=== PATIENT | female | born 1945 | race Caucasian/White ===

== ENCOUNTER 2018-05-03 03:52 | Emergency (ER) | payer MEDICARE, OTHER ==
[2018-05-03] MEDS ORDERED: Pepcid 20 MG VIAL IV ONE ×2 (03:57→04:09)
[2018-05-03] MEDS ORDERED: BENADRYL 50 MG/ML ONE (03:57)
[2018-05-03] MEDS ORDERED: solu-MEDROL 125 MG ONE (03:57)
--- NOTE | 2018-05-03 04:02 | ERPHSYRPT ---
- History of Present Illness Time Seen by Provider: 05/03/18 03:57 Source: patient, family Exam Limitations: clinical condition Physician History: 72 y/o white female with h/o copd presents with sudden onset of soa. 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 pt does not use oxygen at home. no cp. pt is allergic to shellfish and pcn but per sig other, no ingestion of these. pt had a similar episode in distant past when she ate food unknowingly contained shellfish. Activities at Onset: none Severity of Dyspnea-Max: moderate Severity of Dyspnea-Current: moderate Possible Cause: unknown cause (one other episode.) Associated Symptoms: anxiety, cough, productive cough International travel in last 2 weeks: No Allergies/Adverse Reactions: codeine [Codeine] Allergy (Severe, Verified 01/17/14 06:49) Fainting Penicillins Allergy (Severe, Verified 01/17/14 06:49) Swelling shellfish derived Allergy (Intermediate, Verified 01/18/14 16:30) Difficulty Breathing Home Medications: Albuterol Sulfate [Proair Hfa] 2 puff IH BID 07/12/12 [History] Citalopram Hydrobromide 20 mg* [ceLEXa 20 MG] 40 mg PO DAILY 07/12/12 [ History] Levothyroxine Sodium 50 Mcg [Synthroid 50 Mcg] 50 mcg PO DAILY 07/12/12 [ History] Potassium Chloride 20 Meq Tab [Potassium Chloride 20 MEQ TABLET] 20 meq PO TID 07/12/12 [History] Albuterol 2.5 mg/3 ml Neb [Proventil 2.5 mg/3 ml Neb] 2.5 mg IH Q4HPRN PRN 06/07/13 [History] Allopurinol 100 mg [Zyloprim 100 mg] 100 mg PO DAILY 06/07/13 [History] Furosemide [Lasix] 40 mg PO DAILY 06/07/13 [History] Hctz/Triamteren 37.5 mg/25 mg* [Maxzide-25MG Tablet] 1 tab PO DAILY 06/07/13 [History] Allopurinol [Zyloprim] 100 mg PO DAILY PRN 01/17/14 [History] Pantoprazole Sodium [Protonix] 40 mg PO DAILY 01/17/14 [History] Ranitidine HCl [Zantac] 150 mg PO BID 01/17/14 [History] Hx Tetanus, Diphtheria Vaccination/Date Given: Yes Hx Influenza Vaccination/Date Given: No (refuses) Hx Pneumococcal Vaccination/Date Given: No - Review of Systems Constitutional: No Symptoms, No Fever Eyes: No Symptoms Ears, Nose, & Throat: No Symptoms Respiratory: Cough, Dyspnea, No Stridor, No Wheezing Cardiac: No Symptoms, No Chest Pain, No Palpitations, No Syncope Abdominal/Gastrointestinal: No Symptoms, No Abdominal Pain, No Nausea, No Vomiting, No Diarrhea Genitourinary Symptoms: No Symptoms, No Dysuria, No Frequency, No Hematuria Musculoskeletal: No Symptoms Skin: No Symptoms Neurological: No Symptoms Psychological: No Symptoms Endocrine: No Symptoms Hematologic/Lymphatic: No Symptoms Immunological/Allergic: No Symptoms All Other Systems: Reviewed and Negative - Past Medical History Pertinent Past Medical History: Yes Neurological History: No Pertinent History ENT History: Cataracts, Other Cardiac History: Hypertension Respiratory History: Bronchitis Endocrine Medical History: Hyperthyroidism Musculoskeletal History: No Pertinent History GI Medical History: Esophageal Disorder History: No Pertinent History Psycho-Social History: Depression Female Reproductive Disorders: Fibroids Other Medical History: skin ca - Past Surgical History Past Surgical History: Yes Neuro Surgical History: No Pertinent History Cardiac: No Pertinent History Respiratory: No Pertinent History Gastrointestinal: Cholecystectomy Genitourinary: No Pertinent History Musculoskeletal: No Pertinent History Female Surgical History: Hysterectomy Other Surgical History: T&A - Social History Smoking Status: Never smoker Exposure to second hand smoke: Yes Drug Use: none Patient Lives Alone: No Significant Family History: no pertinent family hx - Nursing Vital Signs Nursing Vital Signs: Initial Vital Signs Temperature 98 F 05/03/18 04:02 Pulse Rate 92 H 05/03/18 04:02 Respiratory Rate 26 H 05/03/18 04:02 Blood Pressure 106/98 05/03/18 04:02 O2 Sat by Pulse Oximetry 97 05/03/18 04:02 Pain Scale Pain Intensity 2 - Physical Exam General Appearance: moderate distress, alert, anxiety Eye Exam: PERRL/EOMI, eyes nml inspection Ears, Nose, Throat Exam: hearing grossly normal Neck Exam: normal inspection, non-tender, supple Respiratory Exam: respiratory distress, diminished breath sounds, accessory muscle use, rhonchi, No wheezing, No stridor Cardiovascular/Chest Exam: regular rate/rhythm Abdominal/Gastrointestinal Exam: soft, normal bowel sounds, No tenderness, No distention, No mass, No guarding, No rebound Rectal Exam: not done Extremity Exam: non-tender, normal range of motion, normal inspection Neurologic Exam: alert, oriented x 3, cooperative, cast iron dipper II-XII nml as tested Skin Exam: normal color, warm, dry Lymphatic Exam: No adenopathy SpO2 Interpretation: normal, O2 applied Oxygen Delivery: Room Air - Course Nursing assessment & vital signs reviewed: Yes EKG Interpreted by Me: RATE (69), Sinus Rhythm, NORMAL AXIS, NORMAL INTERVALS, Non-specific ST Changes (improved ekg over ekg dated 01/18/14) Ordered Tests: Active Orders 24 hr Category Date Time Status Desk Lieutenant STAT Care 05/03/18 04:10 Active EKG-ER Only STAT Care 05/03/18 04:09 Active IV Insertion STAT Care 05/03/18 04:09 Active Pulse Oximetry (ED) STAT Care 05/03/18 04:09 Active CHEST 1 VIEW (PORTABLE) Stat Exams 05/03/18 04:10 Taken ABG [ARTERIAL BLOOD GASES] Stat Lab 05/03/18 06:48 Completed ARTERIAL BLOOD GASES Stat Lab 05/03/18 04:20 Completed BLOOD CULTURE Stat Lab 05/03/18 04:30 Received CBC W DIFF Stat Lab 05/03/18 04:28 Completed CMP Stat Lab 05/03/18 04:28 Completed CULTURE,SPUTUM Stat Lab 05/03/18 04:28 Received D-DIMER QUANTITATION Stat Lab 05/03/18 04:28 Completed Lactic Acid Stat Lab 05/03/18 04:20 Completed Lactic Acid Stat Lab 05/03/18 06:48 Results NT PRO BNP Stat Lab 05/03/18 04:28 Completed PROTIME WITH INR Stat Lab 05/03/18 04:28 Completed TROPONIN Q3H Lab 05/03/18 04:28 Completed TROPONIN Q3H Lab 05/03/18 07:15 Ordered TROPONIN Q3H Lab 05/03/18 10:15 Ordered TROPONIN Q3H Lab 05/03/18 13:15 Ordered TROPONIN Q3H Lab 05/03/18 16:15 Ordered Medication Summary Generic Name Dose Route Start Last Admin Trade Name Freq PRN Reason Stop Dose Admin Potassium Chloride 20 meq in 100 mls @ 50 mls/hr 05/03/18 05:15 05/03/18 05: 23 Potassium Chloride 20 Meq In Water 100ml IV 05/03/18 07:14 50 mls/hr STAT ONE Administration Discontinued Medications Generic Name Dose Route Start Last Admin Trade Name Mike PRN Reason Stop Dose Admin Diphenhydramine HCl Confirm 05/03/18 03:57 Benadryl 50 Mg/Ml Administered 05/03/18 03:58 Dose 50 mg .ROUTE .STK-MED ONE Diphenhydramine HCl 50 mg 05/03/18 04:12 05/03/18 04:16 Benadryl 50 Mg/Ml IV 05/03/18 04:13 50 mg STAT ONE Administration Famotidine Confirm 05/03/18 03:57 Pepcid 20 Mg Vial Administered 05/03/18 03:58 Dose 40 mg IV .STK-MED ONE Famotidine 40 mg 05/03/18 04:09 05/03/18 04:16 Pepcid 20 Mg Vial IV 05/03/18 04:10 40 mg STAT ONE Administration Potassium Chloride Confirm 05/03/18 05:20 Potassium Chloride 20 Meq In Water 100ml Administered 05/03/18 05:21 Dose 100 mls @ ud IV .STK-MED ONE Sodium Chloride 500 mls @ 500 mls/hr 05/03/18 05:37 05/03/18 05:38 Sodium Chloride 0.9% 500 Ml IV 05/03/18 06:36 500 mls/hr .Q1H ONE Administration Sodium Chloride Confirm 05/03/18 05:37 Sodium Chloride 0.9% 500 Ml Administered 05/03/18 05:38 Dose 500 mls @ ud IV .STK-MED ONE Methylprednisolone Sodium Succinate Confirm 05/03/18 03:57 Solu-Medrol 125 Mg Administered 05/03/18 03:58 Dose 125 mg .ROUTE .STK-MED ONE Methylprednisolone Sodium Succinate 125 mg 05/03/18 04:09 05/03/18 04:16 Solu-Medrol 125 Mg IV 05/03/18 04:10 125 mg STAT ONE Administration Potassium Chloride 20 meq 05/03/18 05:17 05/03/18 05:23 Klor Con 10 Meq PO 05/03/18 05:18 20 meq STAT ONE Administration Potassium Chloride Confirm 05/03/18 05:20 Klor Con 10 Meq Administered 05/03/18 05:21 Dose 20 meq PO .STK-MED ONE Lab/Rad Data: Laboratory Result Diagrams 05/03/18 04:28 05/03/18 04:28 Laboratory Results 05/03/18 05/03/18 05/03/18 Range/Units 06:48 06:48 04:39 WBC (4.0-10.5) K/mm3 RBC (4.1-5.4) M/mm3 Hgb (12.0-16.0) gm/dl Hct (35-47) % MCV (78-100) fl MCH (26-32) pg MCHC (32-36) g/dl RDW (11.5-14.0) % Plt Count (150-450) K/mm3 MPV (6-9.5) fl Gran % (36.0-66.0) % Eos # (Auto) (0-0.5) Absolute Lymphs (auto) (1.0-4.6) Absolute Monos (auto) (0.0-1.3) Lymphocytes % (24.0-44.0) % Monocytes % (0.0-12.0) % Eosinophils % (0.00-5.0) % Basophils % (0.0-0.4) % Absolute Granulocytes (1.4-6.9) Basophils # (0-0.4) PT (9.95-12.35) SECONDS INR (0.8-3.0) D-Dimer (215-500) ng/mL Puncture Site RIGHT RADIAL pCO2 44 (35-45) mmHg pO2 72 L (75-100) mmHg Base Excess 5.9 H (-2.0-2.0) O2 Saturation 93.1 L (94-100) g/dF ABG pH 7.45 (7.35-7.45) ABG HCO3 30.6 H* (22-28) ABG O2 Sat (Measured) 93.9 L (95-100) % Collin Test YES A-a Gradient 23 a/A Ratio 0.76 Hemoglobin 11.5 Carboxyhemoglobin 0.3 (0.0-6.9) % THgb Methemoglobin 0.5 L (1.4-1.5) % Potassium 3.2 L (3.5-5.1) Temperature 37.0 C POC O2 Flow Rate 21 % Sodium (137-145) mmol/L Chloride (98-107) mmol/L Carbon Dioxide (22-30) mmol/L Anion Gap (5-15) MEQ/L BUN (7-17) mg/dL Creatinine (0.52-1.04) mg/dL Estimated GFR ML/MIN Glucose (74-106) mg/dL Lactic Acid 2.3 H (0.4-2.0) Calcium (8.4-10.2) mg/dL Total Bilirubin (0.2-1.3) mg/dL AST (14-36) U/L ALT (0-35) U/L Alkaline Phosphatase (38-126) U/L Troponin I (0.000-0.034) ng/mL NT-Pro-B Natriuret Pep (0-900) pg/mL Serum Total Protein (6.3-8.2) g/dL Albumin (3.5-5.0) g/dL Influenza Type A Ag NEGATIVE (NEGATIVE) Influenza Type B Ag NEGATIVE (NEGATIVE) RSV (PCR) NEGATIVE (Negative) 05/03/18 05/03/18 05/03/18 Range/Units 04:28 04:28 04:28 WBC (4.0-10.5) K/mm3 RBC (4.1-5.4) M/mm3 Hgb (12.0-16.0) gm/dl Hct (35-47) % MCV (78-100) fl MCH (26-32) pg MCHC (32-36) g/dl RDW (11.5-14.0) % Plt Count (150-450) K/mm3 MPV (6-9.5) fl Gran % (36.0-66.0) % Eos # (Auto) (0-0.5) Absolute Lymphs (auto) (1.0-4.6) Absolute Monos (auto) (0.0-1.3) Lymphocytes % (24.0-44.0) % Monocytes % (0.0-12.0) % Eosinophils % (0.00-5.0) % Basophils % (0.0-0.4) % Absolute Granulocytes (1.4-6.9) Basophils # (0-0.4) PT 10.9 (9.95-12.35) SECONDS INR 0.94 (0.8-3.0) D-Dimer 239 (215-500) ng/mL Puncture Site pCO2 (35-45) mmHg pO2 (75-100) mmHg Base Excess (-2.0-2.0) O2 Saturation (94-100) g/dF ABG pH (7.35-7.45) ABG HCO3 (22-28) ABG O2 Sat (Measured) (95-100) % Collin Test A-a Gradient a/A Ratio Hemoglobin Carboxyhemoglobin (0.0-6.9) % THgb Methemoglobin (1.4-1.5) % Potassium 2.7 L* (3.5-5.1) Temperature C POC O2 Flow Rate % Sodium 145 (137-145) mmol/L Chloride 97 L (98-107) mmol/L Carbon Dioxide 36 H (22-30) mmol/L Anion Gap 14.0 (5-15) MEQ/L BUN 49 H (7-17) mg/dL Creatinine 1.72 H (0.52-1.04) mg/dL Estimated GFR 30.8 ML/MIN Glucose 110 H (74-106) mg/dL Lactic Acid (0.4-2.0) Calcium 9.6 (8.4-10.2) mg/dL Total Bilirubin 0.50 (0.2-1.3) mg/dL AST 15 (14-36) U/L ALT 12 (0-35) U/L Alkaline Phosphatase 111 (38-126) U/L Troponin I < 0.012 (0.000-0.034) ng/mL NT-Pro-B Natriuret Pep 152 (0-900) pg/mL Serum Total Protein 7.1 (6.3-8.2) g/dL Albumin 4.4 (3.5-5.0) g/dL Influenza Type A Ag (NEGATIVE) Influenza Type B Ag (NEGATIVE) RSV (PCR) (Negative) 05/03/18 05/03/18 Range/Units 04:28 04:20 WBC 9.6 (4.0-10.5) K/mm3 RBC 4.54 (4.1-5.4) M/mm3 Hgb 13.1 (12.0-16.0) gm/dl Hct 40.0 (35-47) % MCV 88.1 (78-100) fl MCH 28.9 (26-32) pg MCHC 32.8 (32-36) g/dl RDW 14.9 H (11.5-14.0) % Plt Count 486 H (150-450) K/mm3 MPV 9.1 (6-9.5) fl Gran % 59.1 (36.0-66.0) % Eos # (Auto) 0.20 (0-0.5) Absolute Lymphs (auto) 2.94 (1.0-4.6) Absolute Monos (auto) 0.76 (0.0-1.3) Lymphocytes % 30.7 (24.0-44.0) % Monocytes % 7.9 (0.0-12.0) % Eosinophils % 2.1 (0.00-5.0) % Basophils % 0.2 (0.0-0.4) % Absolute Granulocytes 5.65 (1.4-6.9) Basophils # 0.02 (0-0.4) PT (9.95-12.35) SECONDS INR (0.8-3.0) D-Dimer (215-500) ng/mL Puncture Site RIGHT RADIAL pCO2 25 L (35-45) mmHg pO2 173 H* (75-100) mmHg Base Excess 12.1 H (-2.0-2.0) O2 Saturation 95.9 (94-100) g/dF ABG pH 7.71 H* (7.35-7.45) ABG HCO3 31.6 H* (22-28) ABG O2 Sat (Measured) 96.9 (95-100) % Collin Test YES A-a Gradient -5 a/A Ratio 1.03 Hemoglobin 12.1 Carboxyhemoglobin 0.8 (0.0-6.9) % THgb Methemoglobin 0.2 L (1.4-1.5) % Potassium 2.7 L* (3.5-5.1) Temperature 37.0 C POC O2 Flow Rate 28 % Sodium (137-145) mmol/L Chloride (98-107) mmol/L Carbon Dioxide (22-30) mmol/L Anion Gap (5-15) MEQ/L BUN (7-17) mg/dL Creatinine (0.52-1.04) mg/dL Estimated GFR ML/MIN Glucose (74-106) mg/dL Lactic Acid 2.6 H (0.4-2.0) Calcium (8.4-10.2) mg/dL Total Bilirubin (0.2-1.3) mg/dL AST (14-36) U/L ALT (0-35) U/L Alkaline Phosphatase (38-126) U/L Troponin I (0.000-0.034) ng/mL NT-Pro-B Natriuret Pep (0-900) pg/mL Serum Total Protein (6.3-8.2) g/dL Albumin (3.5-5.0) g/dL Influenza Type A Ag (NEGATIVE) Influenza Type B Ag (NEGATIVE) RSV (PCR) (Negative) - Progress Progress: improved, re-examined Air Movement: good Progress Note: 05/03/18 05:50 pt feeling better. up and ambulating. no cp. pt states she has chronically low potassium. Blood Culture(s) Obtained: Yes Antibiotics given: No Counseled pt/family regarding: lab results, diagnosis, need for follow-up, rad results - Departure Time of Disposition: 07:11 Departure Disposition: Home Clinical Impression: Hypokalemia, COPD exacerbation Condition: Stable Critical Care Time: No Referrals: JACKSON REY MD [Primary Care Provider] - Instructions: Chronic Obstructive Pulmonary Disease Additional Instructions: take your potassium as prescribed. use your nebulizer treatments every 4 hours while awake for next 48 hours. obtain repeat potassium level tomorrow 05/04/18 in the morning. call dr. rey's office today to arrange for follow up appointment. Prescriptions: Prednisone 10 mg [Deltasone 10 mg] 10 mg PO TID #12 tablet
[2018-05-03] MEDS ORDERED: solu-MEDROL 125 MG IV ONE (04:09)
[2018-05-03] MEDS ORDERED: BENADRYL 50 MG/ML IV ONE (04:12)
[2018-05-03 04:39] LABS: BASOPHIL % 0.2 % (0.0-0.4); Basophil (Absolute #) 0.02 (0-0.4); Eosinophil % 2.1 % (0.00-5.0); Granulocyte Absolute (ANC) 5.65 (1.4-6.9); Granulocytes % 59.1 % (36.0-66.0); Hemoglobin 13.1 gm/dl (12.0-16.0); Lymphocyte (Absolute #) 2.94 (1.0-4.6); Lymphocytes % 30.7 % (24.0-44.0); Mean Cell Volume 88.1 fl (78-100); Mean Corpuscular Hemoglobin 28.9 pg (26-32); Mean Corpuscular Hgb Concent. 32.8 g/dl (32-36); Mean Platelet Volume 9.1 fl (6-9.5); Monocyte (Absolute #) 0.76 (0.0-1.3); Monocytes % 7.9 % (0.0-12.0); Platelet Count 486 K/mm3 (150-450); Red Blood Count 4.54 M/mm3 (4.1-5.4); Red Cell Distribution Width 14.9 % (11.5-14.0); White Blood Count 9.6 K/mm3 (4.0-10.5)
[2018-05-03 04:40] LABS: A-aADO2 -5; ABG HEMOGLOBIN 12.1; ARTERIAL BLD GAS O2 SATURATION 96.9 % (95-100); ARTERIAL BLOOD GAS BASE EXCESS 12.1 (-2.0-2.0); ARTERIAL BLOOD GAS FIO2 28 %; ARTERIAL BLOOD GAS PCO2 25 mmHg (35-45); ARTERIAL BLOOD GAS PO2 173 mmHg (75-100); CARBOXYHEMOGLOBIN 0.8 % THgb (0.0-6.9); HCO3- 31.6 (22-28); HGB O2 SAT 95.9 g/dF (94-100); Lactic Acid 2.6 (0.4-2.0); Methhemoglobin 0.2 % (1.4-1.5); paO2 pAO1 1.03
[2018-05-03 04:41] LABS: ARTERIAL BLOOD GAS pH 7.71 (7.35-7.45)
[2018-05-03 04:42] LABS: ABG POTASSIUM 2.7 (3.5-5.1); ABG SITE RIGHT RADIAL; ALLEN TEST OK? YES
[2018-05-03 04:55] LABS: INR 0.94 (0.8-3.0)
[2018-05-03 05:00] LABS: ALBUMIN 4.4 g/dL (3.5-5.0); BILIRUBIN,TOTAL 0.5 mg/dL (0.2-1.3); Calcium 9.6 mg/dL (8.4-10.2); Creatinine 1 1.72 mg/dL (0.52-1.04); Total Protein 7.1 g/dL (6.3-8.2)
[2018-05-03 05:01] LABS: Potassium 2.7 mmol/L (3.5-5.1)
[2018-05-03 05:08] VITALS: PULSE 72
[2018-05-03 05:15] LABS: INFLUENZA A NEGATIVE (NEGATIVE); INFLUENZA B NEGATIVE (NEGATIVE); RESPIRATORY SYNCTIAL VIRUS NEGATIVE (Negative)
[2018-05-03] MEDS ORDERED: POTASSIUM CHLORIDE 20 mEq IN WATER 100ML 20 MEQ/100 ML BAG IV ONE (05:15)
[2018-05-03] MEDS ORDERED: Klor Con 10 MEQ PO ONE ×2 (05:17→05:20)
[2018-05-03] MEDS ORDERED: POTASSIUM CHLORIDE 20 mEq IN WATER 100ML 100 ML IV ONE (05:20)
[2018-05-03] MEDS ORDERED: Sodium Chloride 0.9% 500 ML 500 ML IV ONE ×2 (05:37)
[2018-05-03 06:52] LABS: A-aADO2 23; ABG HEMOGLOBIN 11.5; ABG POTASSIUM 3.2 (3.5-5.1); ABG SITE RIGHT RADIAL; ALLEN TEST OK? YES; ARTERIAL BLD GAS O2 SATURATION 93.9 % (95-100); ARTERIAL BLOOD GAS BASE EXCESS 5.9 (-2.0-2.0); ARTERIAL BLOOD GAS FIO2 21 %; ARTERIAL BLOOD GAS PCO2 44 mmHg (35-45); ARTERIAL BLOOD GAS PO2 72 mmHg (75-100); ARTERIAL BLOOD GAS pH 7.45 (7.35-7.45); CARBOXYHEMOGLOBIN 0.3 % THgb (0.0-6.9); HCO3- 30.6 (22-28); HGB O2 SAT 93.1 g/dF (94-100); Methhemoglobin 0.5 % (1.4-1.5); paO2 pAO1 0.76
[2018-05-03 06:53] LABS: Lactic Acid 2.3 (0.4-2.0)
[2018-05-03 07:54] VITALS: BP 144/62; O2SAT 98
--- NOTE | 2018-05-03 08:34 | XRAY ---
Indication: Short of breath. Comparison: February 21, 2014. Portable chest again demonstrates normal heart, lungs, and bony thorax.
== END 2018-05-03 08:15 | disposition home or self-care (01) ==
LOC: ED 03:52
DX: J44.1 Chronic obstructive pulmonary disease with (acute) exacerbation (principal); E87.6 Hypokalemia; Z79.899 Other long term (current) drug therapy; I10 Essential (primary) hypertension
CPT/HCPCS: 36000; 36415; 36600; 71045; 80053; 82375; 82803; 83605; 83880; 84484; 85025; 85379; 85610; 87040; 87070; 87631; 93005; 93041; 96360; 96365; 96366; 96374; 96375; 99285; J1200; J2930; J3480; A9270-GY

== ENCOUNTER 2020-03-20 16:53 | Inpatient (IN) | payer MEDICARE, OTHER ==
[2020-03-20] MEDS ORDERED: MORPHINE SULFATE 4 MG INJ IV PRN (17:22)
[2020-03-20] MEDS: Sodium Chloride 0.9% 1000 ML 1,000 ML IV SCH (18:04)
[2020-03-20] MEDS: Zofran 4 MG/2 ML VIAL IV PRN (18:04)
[2020-03-20] MEDS: SUBLIMAZE 100 MCG/2 ML IV PRN (18:14)
[2020-03-20 18:28] LABS: ALBUMIN 4.4 g/dL (3.5-5.0); ANION GAP 12.6 MEQ/L (5-15); BILIRUBIN,TOTAL 3.7 mg/dL (0.2-1.3); Calcium 9.8 mg/dL (8.4-10.2); Creatinine 1 1.36 mg/dL (0.52-1.04); EST GLOMERULAR FILTRATION RATE 40.2 ML/MIN; Hematocrit 41.7 % (35-47); Hemoglobin 13.4 gm/dl (12.0-16.0); MAGNESIUM 1.8 mg/dL (1.6-2.3); Mean Cell Volume 85.3 fl (78-100); Mean Corpuscular Hemoglobin 27.4 pg (26-32); Mean Corpuscular Hgb Concent. 32.1 g/dl (32-36); Platelet Count 354 K/mm3 (150-450); Red Blood Count 4.89 M/mm3 (4.1-5.4); Red Cell Distribution Width 16.1 % (11.5-14.0); Total Protein 7.4 g/dL (6.3-8.2); White Blood Count 17.4 K/mm3 (4.0-10.5)
[2020-03-20 18:50] LABS: Potassium 2.9 mmol/L (3.5-5.1)
[2020-03-20] MEDS ORDERED: Magnesium 1 Gm / 100 Ml D5W*** 100 ML IV ONE (18:53)
[2020-03-20] MEDS: POTASSIUM CHLORIDE 20 mEq IN WATER 100ML 20 MEQ/100 ML BAG IV SCH ×2 (19:03→21:52)
[2020-03-20] MEDS ORDERED: ZYLOPRIM 100 MG PO PRN (19:22)
[2020-03-20] MEDS ORDERED: NORCO 7.5/325 MG TAB PO PRN (19:23)
[2020-03-20] MEDS ORDERED: Indocin 25 MG PO ONE (19:24)
[2020-03-20] MEDS ORDERED: ZOFRAN ODT 4 MG PO PRN (19:24)
[2020-03-20] MEDS: Klor Con 10 MEQ PO SCH (21:51)
[2020-03-20] MEDS ORDERED: hydroDIURIL 25 MG PO SCH (22:00)
[2020-03-20] MEDS: Pepcid 20 MG PO SCH (22:12)
[2020-03-20] MEDS ORDERED: ROCEPHIN 1 Gm-D5w 50 ml Bag** 1 G/50 ML IVPB IV SCH (23:30)
[2020-03-21] MEDS: Zofran 4 MG/2 ML VIAL IV PRN ×3 (01:00→14:10)
[2020-03-21] MEDS: Sodium Chloride 0.9% 1000 ML 1,000 ML IV SCH ×3 (02:49→23:25)
[2020-03-21 03:27] LABS: ANION GAP 8.9 MEQ/L (5-15); Calcium 8.9 mg/dL (8.4-10.2); Creatinine 1 1.22 mg/dL (0.52-1.04); EST GLOMERULAR FILTRATION RATE 45.5 ML/MIN; MAGNESIUM 2.3 mg/dL (1.6-2.3); Potassium 3.1 mmol/L (3.5-5.1)
[2020-03-21] MEDS: SUBLIMAZE 100 MCG/2 ML IV PRN ×3 (04:15→14:10)
[2020-03-21] MEDS ORDERED: Indocin 25 MG PO PRN (06:45)
[2020-03-21] MEDS ORDERED: Ventolin Hfa MDI IH PRN (07:20)
[2020-03-21] MEDS ORDERED: VENTOLIN COMMON CANISTER IH PRN (07:23)
[2020-03-21] MEDS ORDERED: PROVENTIL 2.5 MG/3 ML NEB IH SCH (07:30)
[2020-03-21 09:17] LABS: ALBUMIN 3.5 g/dL (3.5-5.0); BILIRUBIN,TOTAL 1.5 mg/dL (0.2-1.3); Direct Bilirubin 0.7 mg/dL (0.0-0.4); Total Protein 6.2 g/dL (6.3-8.2)
[2020-03-21] MEDS ORDERED: TRIAMTERENE PO SCH (10:00)
[2020-03-21] MEDS ORDERED: HYDROCHLOROTHIAZID PO SCH (10:00)
[2020-03-21] MEDS ORDERED: ROCEPHIN 1 Gm-D5w 50 ml Bag** 1 G/50 ML IVPB IV SCH ×2 (10:00→22:00)
[2020-03-21] MEDS: Lasix 40 MG PO SCH (10:31)
[2020-03-21] MEDS: Maxzide-25MG Tablet PO SCH ×2 (10:31→21:13)
[2020-03-21] MEDS: Protonix 40MG Tablet PO SCH (10:31)
[2020-03-21] MEDS: Pepcid 20 MG PO SCH ×2 (10:31→21:14)
[2020-03-21] MEDS: SYNTHROID 50 MCG PO SCH (10:31)
[2020-03-21] MEDS: Klor Con 10 MEQ PO SCH ×4 (10:31→21:13)
[2020-03-21] MEDS: ceLEXa 20 MG PO SCH (10:31)
--- NOTE | 2020-03-21 11:54 | PCM.HP.ADD ---
Addendum to History & Physical - History & Physical Addendum Addendum to History & Physical: This certifies that the History & Physical in the electronic chart reflects the current health status of the patient. If there are changes in the H&P these changes/exceptions are listed as follows.
--- NOTE | 2020-03-21 11:55 | PCM.NOTE ---
Date and Time: 03/21/20 1154 Subjective Assessment: feeling little better - Review of Systems Constitutional: No Fever, No Chills Eyes: No Symptoms Ears, Nose, & Throat: No Symptoms Respiratory: No Cough, No Short Of Breath Cardiac: No Chest Pain, No Edema, No Syncope Abdominal/Gastrointestinal: No Abdominal Pain, No Nausea, No Vomiting, No Diarrhea Genitourinary Symptoms: No Dysuria Musculoskeletal: No Back Pain, No Neck Pain Skin: No Rash Neurological: No Dizziness, No Focal Weakness, No Sensory Changes Psychological: No Symptoms Endocrine: No Symptoms Hematologic/Lymphatic: No Symptoms Immunological/Allergic: No Symptoms Objective Exam General Appearance: no apparent distress, alert Neurologic Exam: alert, oriented x 3, cooperative, normal mood/affect, nml cerebellar function, sensation nml, No motor deficits Skin Exam: normal color, warm, dry Eye Exam: PERRL, EOMI, eyes nml inspection Ears, Nose, Throat Exam: normal ENT inspection, pharynx normal, moist mucous membranes Neck Exam: normal inspection, non-tender, supple, full range of motion Respiratory Exam: normal breath sounds, lungs clear, No respiratory distress Cardiovascular Exam: regular rate/rhythm, normal heart sounds Gastrointestinal/Abdomen Exam: soft, No tenderness, No mass Extremity Exam: normal inspection, normal range of motion Back Exam: normal inspection, normal range of motion, No CVA tenderness, No vertebral tenderness Pelvic Exam: deferred Rectal Exam: deferred OBJECTIVE DATA Vital Signs: Vital Signs - 24 hr Temp Pulse Resp BP Pulse Ox 03/21/20 08:00 16 03/21/20 07:44 98.7 F 76 16 92/54 93 L 03/21/20 04:00 98.8 F 80 16 113/56 95 03/21/20 00:00 98.6 F 79 17 105/51 96 03/20/20 23:57 17 03/20/20 20:00 17 03/20/20 19:55 99.2 F 92 H 17 136/62 97 03/20/20 17:34 97.6 F 99 H 20 146/64 99 03/20/20 17:22 97.6 F 99 H 20 146/64 99 Pain Assessment - Last Documented Pain Intensity 3 Pain Scale Used 0-10 Pain Scale Intake and Output: Intake & Output 03/18/20 03/19/20 03/20/20 03/21/20 11:59 11:59 11:59 11:59 Intake Total 1887 Output Total 1400 Balance 487 Weight 51.3 kg Lab Results: Lab Results-Last 24 Hours 03/20/20 03/20/20 03/21/20 Range/Units 18:10 18:10 03:14 WBC 17.4 H (4.0-10.5) K/mm3 RBC 4.89 (4.1-5.4) M/mm3 Hgb 13.4 (12.0-16.0) gm/dl Hct 41.7 (35-47) % MCV 85.3 (78-100) fl MCH 27.4 (26-32) pg MCHC 32.1 (32-36) g/dl RDW 16.1 H (11.5-14.0) % Plt Count 354 (150-450) K/mm3 MPV 9.0 (7.5-11.0) fl Sodium 133 L 133 L (137-145) mmol/L Potassium 2.9 L* 3.1 L (3.5-5.1) mmol/L Chloride 89 L 93 L (98-107) mmol/L Carbon Dioxide 34 H 34 H (22-30) mmol/L Anion Gap 12.6 8.9 (5-15) MEQ/L BUN 21 H 19 H (7-17) mg/dL Creatinine 1.36 H 1.22 H (0.52-1.04) mg/dL Estimated GFR 40.2 45.5 ML/MIN Glucose 170 H 135 H (74-106) mg/dL Calcium 9.8 8.9 (8.4-10.2) mg/dL Magnesium 1.8 2.3 (1.6-2.3) mg/dL Total Bilirubin 3.70 H (0.2-1.3) mg/dL Direct Bilirubin (0.0-0.4) mg/dL AST 475 H (14-36) U/L ALT 706 H (0-35) U/L Alkaline Phosphatase 375 H (38-126) U/L Serum Total Protein 7.4 (6.3-8.2) g/dL Albumin 4.4 (3.5-5.0) g/dL Amylase 177 H (30-110) U/L Lipase 757 H (23-300) U/L 03/21/20 Range/Units 03:14 WBC (4.0-10.5) K/mm3 RBC (4.1-5.4) M/mm3 Hgb (12.0-16.0) gm/dl Hct (35-47) % MCV (78-100) fl MCH (26-32) pg MCHC (32-36) g/dl RDW (11.5-14.0) % Plt Count (150-450) K/mm3 MPV (7.5-11.0) fl Sodium (137-145) mmol/L Potassium (3.5-5.1) mmol/L Chloride (98-107) mmol/L Carbon Dioxide (22-30) mmol/L Anion Gap (5-15) MEQ/L BUN (7-17) mg/dL Creatinine (0.52-1.04) mg/dL Estimated GFR ML/MIN Glucose (74-106) mg/dL Calcium (8.4-10.2) mg/dL Magnesium (1.6-2.3) mg/dL Total Bilirubin 1.50 H (0.2-1.3) mg/dL Direct Bilirubin 0.7 H (0.0-0.4) mg/dL AST 174 H (14-36) U/L ALT 496 H (0-35) U/L Alkaline Phosphatase 275 H (38-126) U/L Serum Total Protein 6.2 L (6.3-8.2) g/dL Albumin 3.5 (3.5-5.0) g/dL Amylase (30-110) U/L Lipase (23-300) U/L Assessment/Plan (1) Acute pancreatitis after endoscopic retrograde cholangiopancreatography (ERC P) Current Visit: Yes Status: Acute Assessment & Plan: Chief Complaint Diagnosis ACUTE PANCREATITIS Allergies Allergy/AdvReac Type Severity Reaction Status Date / Time codeine [Codeine] Allergy Severe Fainting Verified 01/17/14 06:49 Penicillins Allergy Severe Swelling Verified 01/17/14 06:49 shellfish derived Allergy Intermediate Difficulty Verified 01/18/14 16:30 Breathing Vital Signs (Last 24 hours) Temp Pulse Resp BP Pulse Ox 03/21/20 08:00 16 03/21/20 07:44 98.7 F 76 16 92/54 93 L 03/21/20 04:00 98.8 F 80 16 113/56 95 03/21/20 00:00 98.6 F 79 17 105/51 96 03/20/20 23:57 17 03/20/20 20:00 17 03/20/20 19:55 99.2 F 92 H 17 136/62 97 03/20/20 17:34 97.6 F 99 H 20 146/64 99 03/20/20 17:22 97.6 F 99 H 20 146/64 99 Home Medications Medication Instructions Recorded Confirmed Last Taken Type Famotidine 20 mg [Pepcid 20 20 mg PO BID 03/20/20 03/20/20 03/20/20 History MG] Hydrocodone Bit/Acetaminophen 1 each PO Q6HPRN PRN 03/20/20 03/20/20 Unknown History [[place] 7.5-325 Tablet] Indomethacin 25 mg [Indocin 25 25 mg PO TIDPRN PRN 03/20/20 03/20/20 Unknown History MG] Ondansetron HCl [Zofran] 4 mg PO Q8HPRN PRN 03/20/20 03/20/20 Unknown History Triamterene/Hydrochlorothiazid 1 tab PO BID 03/20/20 03/20/20 03/20/20 History [Dyazide 37.5-25 Capsule] Current Medications Generic Name Dose Route Start Last Admin Trade Name Freq PRN Reason Stop Dose Admin Hydrocodone Bitart/Acetaminophen 1 tab 03/20/20 19:23 [place] 7.5/325 Mg Tab PO 03/25/20 19:22 Q6HPRN PRN PAIN Albuterol Sulfate 2.5 mg 03/21/20 07:30 Proventil 2.5 Mg/3 Ml Neb IH 04/20/20 07:29 Q6HRT MONE Albuterol Sulfate 2 puff 03/21/20 07:23 Ventolin Common Canister IH 04/20/20 07:22 DAILY PRN PRN SHORTNESS OF BREATH Allopurinol 100 mg 03/20/20 19:22 Zyloprim 100 Mg PO 04/19/20 19:21 BIDPRN PRN PAIN Citalopram Hydrobromide 40 mg 03/21/20 10:00 03/21/20 10:31 Celexa 20 Mg PO 04/20/20 09:59 40 mg DAILY MONE Administration Famotidine 20 mg 03/20/20 22:00 03/21/20 10:31 Pepcid 20 Mg PO 04/19/20 21:59 20 mg BID MONE Administration Fentanyl Citrate 25 mcg 03/20/20 18:10 03/21/20 08:42 Sublimaze 100 Mcg/2 Ml IV 03/25/20 18:09 25 mcg Q4H PRN PRN Administration SEVERE PAIN Furosemide 40 mg 03/21/20 10:00 03/21/20 10:31 Lasix 40 Mg PO 04/20/20 09:59 40 mg DAILY MONE Administration Sodium Chloride 1,000 mls @ 100 mls/hr 03/20/20 17:30 03/21/20 02:49 Sodium Chloride 0.9% 1000 Ml IV 04/19/20 17:29 100 mls/hr .Q10H MONE Administration Ceftriaxone Sodium/Dextrose 1 g in 50 mls @ 100 mls/hr 03/21/20 22:00 Rocephin 1 Gm-D5w 50 Ml Bag IV 04/19/20 23:29 QPM MONE Potassium Chloride 20 meq in 100 mls @ 50 mls/hr 03/21/20 11:15 Potassium Chloride 20 Meq In Water 100ml IV 03/21/20 15:14 Q2H MONE Indomethacin 25 mg 03/21/20 06:45 Indocin 25 Mg PO 04/19/20 19:23 TIDPRN PRN Levothyroxine Sodium 50 mcg 03/21/20 10:00 03/21/20 10:31 Synthroid 50 Mcg PO 04/20/20 09:59 50 mcg DAILY MONE Administration Ondansetron HCl 4 mg 03/20/20 17:22 03/21/20 08:43 Zofran 4 Mg/2 Ml Vial IV 04/19/20 17:21 4 mg Q4H PRN PRN Administration NAUSEA/VOMITING Ondansetron HCl 4 mg 03/20/20 19:24 Zofran Odt 4 Mg PO 04/19/20 19:23 Q8HPRN PRN NAUSEA/VOMITING Pantoprazole Sodium 40 mg 03/21/20 10:00 03/21/20 10:31 Protonix 40mg Tablet PO 04/20/20 09:59 40 mg DAILY MONE Administration Potassium Chloride 20 meq 03/20/20 22:00 03/21/20 10:31 Klor Con 10 Meq PO 04/19/20 21:59 20 meq QID MONE Administration Triamterene/HCTZ 1 tab 03/21/20 10:00 03/21/20 10:31 Maxzide-25mg Tablet PO 04/20/20 09:59 1 tab BID MONE Administration Discontinued Medications Generic Name Dose Route Start Last Admin Trade Name Freq PRN Reason Stop Dose Admin Hydrochlorothiazide 25 mg 03/20/20 22:00 03/20/20 22:11 Hydrodiuril 25 Mg PO 04/19/20 21:59 Not Given BID MONE Magnesium Sulfate/Dextrose 100 mls @ 200 mls/hr 03/20/20 18:53 03/20/20 19:03 Magnesium 1 Gm / 100 Ml D5w IV 03/20/20 19:22 200 mls/hr STAT ONE Administration Potassium Chloride 20 meq in 100 mls @ 50 mls/hr 03/20/20 19:00 03/20/20 21:52 Potassium Chloride 20 Meq In Water 100ml IV 03/20/20 22:59 50 mls/hr Q2H MONE Administration Ceftriaxone Sodium/Dextrose 1 g in 50 mls @ 100 mls/hr 03/21/20 10:00 Rocephin 1 Gm-D5w 50 Ml Bag IV 04/20/20 09:59 Q24H10 MONE Ceftriaxone Sodium/Dextrose 1 g in 50 mls @ 100 mls/hr 03/20/20 23:30 03/21/20 00:57 Rocephin 1 Gm-D5w 50 Ml Bag IV 04/19/20 23:29 100 mls/hr Q24H10 MONE Administration Indomethacin 25 mg 03/20/20 19:24 03/20/20 21:33 Indocin 25 Mg PO 03/20/20 19:25 Not Given TIDPRN ONE Morphine Sulfate 4 mg 03/20/20 17:22 Morphine Sulfate 4 Mg Inj IV 03/25/20 17:21 Q4H/PRN PRN Intake & Output (Last 24 hours) 03/18/20 03/19/20 03/20/20 03/21/20 11:59 11:59 11:59 11:59 Intake Total 1887 Output Total 1400 Balance 487 Weight 51.3 kg Laboratory Results (Last 24 hours) 03/21/20 03/21/20 03/20/20 03:14 03:14 18:10 WBC RBC Hgb Hct MCV MCH MCHC RDW Plt Count MPV Sodium 133 L 133 L Potassium 3.1 L 2.9 L* Chloride 93 L 89 L Carbon Dioxide 34 H 34 H Anion Gap 8.9 12.6 BUN 19 H 21 H Creatinine 1.22 H 1.36 H Estimated GFR 45.5 40.2 Glucose 135 H 170 H Calcium 8.9 9.8 Magnesium 2.3 1.8 Total Bilirubin 1.50 H 3.70 H Direct Bilirubin 0.7 H AST 174 H 475 H ALT 496 H 706 H Alkaline Phosphatase 275 H 375 H Serum Total Protein 6.2 L 7.4 Albumin 3.5 4.4 Amylase 177 H Lipase 757 H 03/20/20 18:10 WBC 17.4 H RBC 4.89 Hgb 13.4 Hct 41.7 MCV 85.3 MCH 27.4 MCHC 32.1 RDW 16.1 H Plt Count 354 MPV 9.0 Sodium Potassium Chloride Carbon Dioxide Anion Gap BUN Creatinine Estimated GFR Glucose Calcium Magnesium Total Bilirubin Direct Bilirubin AST ALT Alkaline Phosphatase Serum Total Protein Albumin Amylase Lipase Orders (Last 24 hours) Category Date Time Status Admit as Inpatient ROUTINE Care 03/20/20 17:11 Active Miscellaneous Nursing Order ROUTINE Care 03/20/20 17:11 Active Miscellaneous Nursing Order ROUTINE Care 03/20/20 17:39 Active Order K Level 2 hours post-inf 2 HRS POST K-INFUSED Care 03/20/20 18:54 Active Order K Level 2 hours post-inf 2 HRS POST K-INFUSED Care 03/21/20 11:[address] in Observation ROUTINE Care 03/20/20 17:11 Completed Telemetry q4h Care 03/20/20 18:54 Active Telemetry q4h Care 03/21/20 11:06 Completed Clear Liquid Diet 03/20/20 Dinner Active Nutritional Admission Screen ONCE Diet 03/20/20 18:03 Completed AMYLASE Urgent Lab 03/20/20 18:10 Completed BMP AM.LAB Lab 03/21/20 03:14 Completed CBC Urgent Lab 03/20/20 18:10 Completed CMP Urgent Lab 03/20/20 18:10 Completed Hepatic Function Panel Stat Lab 03/21/20 03:14 Completed LIPASE Urgent Lab 03/20/20 18:10 Completed MAG [MAGNESIUM] AM.LAB Lab 03/21/20 03:14 Completed MAGNESIUM Urgent Lab 03/20/20 18:10 Completed Albuterol 2.5 mg/3 ml Neb [Proventil 2.5 mg/3 ml Neb Med 03/21/20 07:30 Active ] 2.5 mg IH Q6HRT Albuterol Common Canister [Ventolin Common Canister* Med 03/21/20 07:23 Active ] 2 puff IH DAILY PRN PRN Allopurinol 100 mg [Zyloprim 100 mg] Med 03/20/20 19:22 Active 100 mg PO BIDPRN PRN Ceftriaxone 1 GM/50 ML PREMIX* [ROCEPHIN 1 Gm-D5w 50 ml Med 03/20/20 23:30 Discontinued Bag] 1 g in 50 ml IV Q24H10 Ceftriaxone 1 GM/50 ML PREMIX* [ROCEPHIN 1 Gm-D5w 50 ml Med 03/21/20 10:00 Discontinued Bag] 1 g in 50 ml IV Q24H10 Ceftriaxone 1 GM/50 ML PREMIX* [ROCEPHIN 1 Gm-D5w 50 ml Med 03/21/20 22:00 Active Bag] 1 g in 50 ml IV QPM Citalopram Hydrobromide 20 mg* [ceLEXa 20 MG] Med 03/21/20 10:00 Active 40 mg PO DAILY Famotidine 20 mg [Pepcid 20 MG] Med 03/20/20 22:00 Active 20 mg PO BID Fentanyl Citrate 100 Mcg/2 ml* [Sublimaze 100 Mcg/2 ml* Med 03/20/20 18:10 Active ] 25 mcg IV Q4H PRN PRN Furosemide 40 mg [Lasix 40 MG] Med 03/21/20 10:00 Active 40 mg PO DAILY Hctz/Triamteren 37.5 mg/25 mg* [Maxzide-25MG Tablet] Med 03/21/20 10:00 Active 1 tab PO BID Hydrochlorothiazide 25 mg [hydroDIURIL 25 MG] Med 03/20/20 22:00 Discontinued 25 mg PO BID Hydrocodone /APAP 7.5/325 mg [[place] 7.5/325 mg Tab Med 03/20/20 19:23 Active ] 1 tab PO Q6HPRN PRN Indomethacin 25 mg [Indocin 25 MG] Med 03/20/20 19:24 Discontinued 25 mg PO TIDPRN ONE Indomethacin 25 mg [Indocin 25 MG] Med 03/21/20 06:45 Active 25 mg PO TIDPRN PRN Levothyroxine Sodium 50 Mcg [Synthroid 50 Mcg] Med 03/21/20 10:00 Active 50 mcg PO DAILY Magnesium Sulfate 1 gm/100 ml* [Magnesium 1 Gm / 100 Ml Med 03/20/20 18:53 Discontinued D5W] 100 ml IV STAT Morphine Sulfate 4 mg Inj Med 03/20/20 17:22 Discontinued 4 mg IV Q4H/PRN PRN NaCl 0.9% 1000 ml [Sodium Chloride 0.9% 1000 ML] 1,000 Med 03/20/20 17:30 Active ml IV 100 mls/hr Ondansetron HCl 4 mg/2 ml [Zofran 4 MG/2 ML VIAL] Med 03/20/20 17:22 Active 4 mg IV Q4H PRN PRN Ondansetron ODT 4 MG [Zofran Odt 4 mg] Med 03/20/20 19:24 Active 4 mg PO Q8HPRN PRN PANTOPRAZOLE 40 mg Tablet [Protonix 40MG Tablet] Med 03/21/20 10:00 Active 40 mg PO DAILY Potassium Chloride 10 Meq Tab* [Klor Con 10 MEQ] Med 03/20/20 22:00 Active 20 meq PO QID Potassium Chloride 20Meq/100Ml [POTASSIUM CHLORIDE 20 Med 03/20/20 19:00 Discontinued mEq IN WATER 100ML] 20 meq in 100 ml IV Q2H Potassium Chloride 20Meq/100Ml [POTASSIUM CHLORIDE 20 Med 03/21/20 11:15 Active mEq IN WATER 100ML] 20 meq in 100 ml IV Q2H Patient Care Notes (Last 24 hours) 03/20/20 19:13 Nursing Note by Rukhsana Roldan dr called with critical k level. new orders obtained for k rider 40meq iv x1 and 1gm mag rider 1x. bmp and mag in am Initialized on 03/20/20 19:13 - END OF NOTE 03/20/20 18:17 Nursing Note by Alba Figueroa went to give MS to pt and she states she had a bad reaction to it "broke out in a sweat and became very nervous" when given MS yesterday at [facility]. Dr Francisco called and order changed to Fentanyl 25mcg iv q4 prn which pt states she does w ell with Initialized on 03/20/20 18:17 - END OF NOTE 03/20/20 17:53 Nursing Note by Aliya Everett I faxed over a SARI consent signed from patients , to obtain for a copy of her CT Scan of abd/pelvis from [facility] [phone]. Initialized on 03/20/20 17:53 - END OF NOTE Code(s): K91.89 - OTH POSTPROCEDURAL COMPLICATIONS AND DISORDERS OF DGSTV SYS; K85.90 - ACUTE PANCREATITIS WITHOUT NECROSIS OR INFECTION, UNSP (2) Benign neuroendocrine neoplasm of pancreas Current Visit: Yes Status: Acute Code(s): D3A.8 - OTHER BENIGN NEUROENDOCRINE TUMORS (3) Hypokalemia Current Visit: Yes Status: Acute Code(s): E87.6 - HYPOKALEMIA
[2020-03-21] MEDS: POTASSIUM CHLORIDE 20 mEq IN WATER 100ML 20 MEQ/100 ML BAG IV SCH ×2 (12:20→15:51)
[2020-03-22] MEDS: Sodium Chloride 0.9% 1000 ML 1,000 ML IV SCH (09:06)
[2020-03-22] MEDS: Maxzide-25MG Tablet PO SCH (11:16)
[2020-03-22] MEDS: ceLEXa 20 MG PO SCH (11:16)
[2020-03-22] MEDS: Klor Con 10 MEQ PO SCH ×3 (11:16→17:05)
[2020-03-22] MEDS: Lasix 40 MG PO SCH (11:16)
[2020-03-22] MEDS: SYNTHROID 50 MCG PO SCH (11:16)
[2020-03-22] MEDS: Pepcid 20 MG PO SCH (11:16)
[2020-03-22] MEDS: Protonix 40MG Tablet PO SCH (11:17)
[2020-03-22 11:41] LABS: Absolute Neutrophil Ct (ANC) 6.75 (1.4-6.9); BASOPHIL % 0.5 % (0.0-0.4); Basophil (Absolute #) 0.04 (0-0.4); Eosinophil % 1.5 % (0.00-5.0); Eosinophil (Absolute #) 0.13 (0-0.5); Hematocrit 33.5 % (35-47); Hemoglobin 10.3 gm/dl (12.0-16.0); Lymphocyte (Absolute #) 1.24 (1.0-4.6); Lymphocytes % 14.1 % (24.0-44.0); Mean Cell Volume 89.1 fl (78-100); Mean Corpuscular Hemoglobin 27.4 pg (26-32); Mean Corpuscular Hgb Concent. 30.7 g/dl (32-36); Mean Platelet Volume 8.8 fl (7.5-11.0); Monocyte (Absolute #) 0.65 (0.0-1.3); Monocytes % 7.4 % (0.0-12.0); Neutrophil % 76.5 % (36.0-66.0); Platelet Count 366 K/mm3 (150-450); Red Blood Count 3.76 M/mm3 (4.1-5.4); Red Cell Distribution Width 15.9 % (11.5-14.0); White Blood Count 8.8 K/mm3 (4.0-10.5)
[2020-03-22 11:52] LABS: ALBUMIN 3.2 g/dL (3.5-5.0); ANION GAP 6.7 MEQ/L (5-15); BILIRUBIN,TOTAL 0.5 mg/dL (0.2-1.3); Creatinine 1 1.08 mg/dL (0.52-1.04); EST GLOMERULAR FILTRATION RATE 52.4 ML/MIN; Total Protein 5.5 g/dL (6.3-8.2)
[2020-03-22 11:54] LABS: Calcium 8.8 mg/dL (8.4-10.2)
[2020-03-22] MEDS: POTASSIUM CHLORIDE 20 mEq IN WATER 100ML 20 MEQ/100 ML BAG IV SCH ×2 (12:47→15:39)
--- NOTE | 2020-03-22 18:49 | PCM.DS ---
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 She has tolerated a bland diet today and feels she is about at her baseline. She has chronic hypokalemia, today potassium =3.0 and 40mg Krider given. Liver enzymes are improved AST was 475 now 33, ALT was 706 now 201, amylase was 177 now 62,lipase was 757 now 284. Patient denies N/V/D. Does have mild left upper abdominal pain if pressure applied. - Vitals & Intake/Output Vital Signs: Vital Signs Temperature 97.0 F 03/22/20 16:00 Pulse Rate 65 03/22/20 16:00 Respiratory Rate 16 03/22/20 16:00 Blood Pressure 123/56 03/22/20 16:00 O2 Sat by Pulse Oximetry 98 03/22/20 16:00 Intake & Output: Intake & Output 03/20/20 03/21/20 03/22/20 03/23/20 11:59 11:59 11:59 11:59 Intake Total 1887 3989 2413 Output Total 1400 2400 900 Balance 487 1589 1513 Weight 51.3 kg - Lab Result Diagrams: 03/22/20 11:25 03/22/20 11:25 Lab Results-Last 24 Hrs: Lab Results-Last 24 Hours 03/21/20 03/22/20 03/22/20 Range/Units 21:20 11:25 11:25 WBC 8.8 (4.0-10.5) K/mm3 RBC 3.76 L (4.1-5.4) M/mm3 Hgb 10.3 L D (12.0-16.0) gm/dl Hct 33.5 L (35-47) % MCV 89.1 (78-100) fl MCH 27.4 (26-32) pg MCHC 30.7 L (32-36) g/dl RDW 15.9 H (11.5-14.0) % Plt Count 366 (150-450) K/mm3 MPV 8.8 (7.5-11.0) fl Gran % 76.5 H (36.0-66.0) % Eos # (Auto) 0.13 (0-0.5) Absolute Lymphs (auto) 1.24 (1.0-4.6) Absolute Monos (auto) 0.65 (0.0-1.3) Lymphocytes % 14.1 L (24.0-44.0) % Monocytes % 7.4 (0.0-12.0) % Eosinophils % 1.5 (0.00-5.0) % Basophils % 0.5 (0.0-0.4) % Absolute Granulocytes 6.75 (1.4-6.9) Basophils # 0.04 (0-0.4) Sodium 135 L (137-145) mmol/L Potassium 3.2 L 3.0 L (3.5-5.1) mmol/L Chloride 101 (98-107) mmol/L Carbon Dioxide 31 H (22-30) mmol/L Anion Gap 6.7 (5-15) MEQ/L BUN 11 (7-17) mg/dL Creatinine 1.08 H (0.52-1.04) mg/dL Estimated GFR 52.4 ML/MIN Glucose 112 H (74-106) mg/dL Calcium 8.8 (8.4-10.2) mg/dL Total Bilirubin 0.50 (0.2-1.3) mg/dL AST 33 (14-36) U/L ALT 201 H (0-35) U/L Alkaline Phosphatase 191 H (38-126) U/L Serum Total Protein 5.5 L (6.3-8.2) g/dL Albumin 3.2 L (3.5-5.0) g/dL Amylase 62 (30-110) U/L Lipase 284 (23-300) U/L - Discharge Disposition: Home, Self-Care Condition: Stable Prescriptions: No Action Citalopram Hydrobromide 20 mg* [ceLEXa 20 MG] 40 mg PO DAILY Levothyroxine Sodium 50 Mcg [Synthroid 50 Mcg] 50 mcg PO DAILY Potassium Chloride 20 Meq Tab [Potassium Chloride 20 MEQ TABLET] 20 meq PO QID Albuterol Sulfate [Proair Hfa] 2 puff IH DAILY PRN PRN PRN Reason: Shortness Of Breath Albuterol 2.5 mg/3 ml Neb [Proventil 2.5 mg/3 ml Neb] 1 neb IH Q6H Furosemide [Lasix] 40 mg PO DAILY Pantoprazole Sodium [Protonix] 40 mg PO DAILY Allopurinol [Zyloprim] 100 mg PO BIDPRN PRN PRN Reason: JOINT PAIN Hydrocodone Bit/Acetaminophen [[place] 7.5-325 Tablet] 1 each PO Q6HPRN PRN PRN Reason: Pain Triamterene/Hydrochlorothiazid [Dyazide 37.5-25 Capsule] 1 tab PO BID Famotidine 20 mg [Pepcid 20 MG] 20 mg PO BID Indomethacin 25 mg [Indocin 25 MG] 25 mg PO TIDPRN PRN PRN Reason: Pain Ondansetron HCl [Zofran] 4 mg PO Q8HPRN PRN PRN Reason: Nausea Follow up with: JACKSON REY MD [Primary Care Provider] - 03/31/20 3:30 pm (at [facility])
[2020-03-22 19:44] VITALS: BP 109/57; PULSE 71; O2SAT 99
== END 2020-03-22 22:40 | disposition home or self-care (01) | DRG 440 ==
LOC: OBSVTOIN 17:11 → MED SURG 17:11
PROVIDERS: ADMIT General Practice; ATTEND General Practice
DX: K85.90 Acute pancreatitis without necrosis or infection, unspecified (principal); E86.0 Dehydration; E87.6 Hypokalemia; R10.12 Left upper quadrant pain; Z86.018 Personal history of other benign neoplasm; Z79.899 Other long term (current) drug therapy; Z98.890 Other specified postprocedural states
CPT/HCPCS: 36415; 80048; 80053; 80076; 82150; 83690; 83735; 84132; 85025; 85027; J0696; J2270; J2405; J3010; J3475; J3480; A9270-GY

== ENCOUNTER 2020-06-11 21:40 | Observation (INO) | payer MEDICARE, OTHER ==
[2020-06-11] MEDS ORDERED: Sodium Chloride 0.9% 1000 ML 1,000 ML IV STA (21:51)
[2020-06-11] MEDS ORDERED: MORPHINE SULFATE 4 MG INJ IV ONE (21:51)
[2020-06-11] MEDS ORDERED: PROTONIX 40 MG IV IV ONE ×2 (21:51→21:59)
[2020-06-11] MEDS ORDERED: Zofran 4 MG/2 ML VIAL IV ONE (21:51)
[2020-06-11] MEDS ORDERED: Zofran 4 MG/2 ML VIAL ONE (21:59)
[2020-06-11] MEDS ORDERED: MORPHINE SULFATE 4 MG INJ ONE (22:00)
[2020-06-11] MEDS ORDERED: Sodium Chloride 0.9% 1000 ML 1,000 ML ONE (22:00)
[2020-06-11 22:16] LABS: Absolute Neutrophil Ct (ANC) 8.19 (1.4-6.9); BASOPHIL % 0.1 % (0.0-0.4); Basophil (Absolute #) 0.01 (0-0.4); Eosinophil % 0.8 % (0.00-5.0); Eosinophil (Absolute #) 0.09 (0-0.5); Hematocrit 42.3 % (35-47); Hemoglobin 13.7 gm/dl (12.0-16.0); Lymphocyte (Absolute #) 2.45 (1.0-4.6); Lymphocytes % 21.5 % (24.0-44.0); Mean Cell Volume 83.1 fl (78-100); Mean Corpuscular Hemoglobin 26.9 pg (26-32); Mean Corpuscular Hgb Concent. 32.4 g/dl (32-36); Mean Platelet Volume 8.5 fl (7.5-11.0); Monocyte (Absolute #) 0.63 (0.0-1.3); Monocytes % 5.5 % (0.0-12.0); Neutrophil % 72.1 % (36.0-66.0); Platelet Count 436 K/mm3 (150-450); Red Blood Count 5.09 M/mm3 (4.1-5.4); White Blood Count 11.4 K/mm3 (4.0-10.5)
[2020-06-11 22:18] LABS: ALBUMIN 4.3 g/dL (3.5-5.0); ANION GAP 13.2 MEQ/L (5-15); BILIRUBIN,TOTAL 0.8 mg/dL (0.2-1.3); Creatinine 1 1.23 mg/dL (0.52-1.04); EST GLOMERULAR FILTRATION RATE 45.1 ML/MIN; Total Protein 7.2 g/dL (6.3-8.2)
[2020-06-11 22:27] LABS: Potassium 2.7 mmol/L (3.5-5.1)
[2020-06-11] MEDS ORDERED: Klor Con 10 MEQ PO ONE ×2 (22:31→22:46)
--- NOTE | 2020-06-11 22:31 | ERPHSYRPT ---
- History of Present Illness Time Seen by Provider: 06/11/20 21:49 Historian: patient Exam Limitations: no limitations Patient Subjective Stated Complaint: Patient states " I started having left side chest and upper ABD pain around 1530 today that would also go into the middle of my back." Triage Nursing Assessment: . Physician History: 74 years old female with multiple medical problems including pancreatic mass status post surgical resection at presented in the ER with chief complaint of upper abdominal pain off and on for the last 3 days with progressive worsening, dull aching to sharp with radiation to the center of the chest without any significant aggravating or relieving factors, associated with nausea but no vomiting. Also feels some shortness of breath with it. Patient reports symptoms similar to last time when she had a pancreatic problem but never had a chest pain with it. She has a history of congestive heart failure but no CAD. Timing/Duration: day(s) (3), intermittent, gradual onset, worse Activities at Onset: rest Quality: sharpness Abdominal Pain Onset Location: RUQ, epigastric Pain Radiation: chest Severity of Pain-Max: severe Severity of Pain-Current: moderate Modifying Factors: Worsens With: movement, palpation Associated Symptoms: back, chest pain, heartburn, nausea, No fever/chills, No shortness of breath, No vomiting Previous symptoms: same symptoms as today Allergies/Adverse Reactions: codeine [Codeine] Allergy (Severe, Verified 06/11/20 21:54) Fainting Penicillins Allergy (Severe, Verified 06/11/20 21:54) Swelling shellfish derived Allergy (Intermediate, Verified 06/11/20 21:54) Difficulty Breathing Home Medications: Citalopram Hydrobromide 20 mg* [ceLEXa 20 MG] 40 mg PO DAILY 07/12/12 [History] Levothyroxine Sodium 50 Mcg [Synthroid 50 Mcg] 50 mcg PO DAILY 07/12/12 [History] Potassium Chloride 20 Meq Tab [Potassium Chloride 20 MEQ TABLET] 20 meq PO QID 07/12/12 [History] Albuterol 2.5 mg/3 ml Neb [Proventil 2.5 mg/3 ml Neb] 1 neb IH Q6H 06/07/13 [History] Furosemide [Lasix] 40 mg PO DAILY 06/07/13 [History] Allopurinol [Zyloprim] 100 mg PO BIDPRN PRN 01/17/14 [History] Hydrocodone Bit/Acetaminophen [[place] 7.5-325 Tablet] 1 each PO Q6HPRN PRN 03/20/20 [History] Indomethacin 25 mg [Indocin 25 MG] 25 mg PO TIDPRN PRN 03/20/20 [History] Ondansetron HCl [Zofran] 4 mg PO Q8HPRN PRN 03/20/20 [History] Triamterene/Hydrochlorothiazid [Dyazide 37.5-25 Capsule] 1 tab PO BID 03/20/20 [History] Hx Tetanus, Diphtheria Vaccination/Date Given: Yes Hx Influenza Vaccination/Date Given: No Hx Pneumococcal Vaccination/Date Given: Yes Immunizations Up to Date: Yes Travel Risk - International Travel Have you traveled outside of the country in past 3 weeks: No - Coronavirus Screening Are you exhibiting any of the following symptoms?: No Close contact with a COVID-19 positive Pt in past 14-21 Days: No - Review of Systems Constitutional: No Symptoms Eyes: No Symptoms Ears, Nose, & Throat: No Symptoms Respiratory: Dyspnea Cardiac: Chest Pain Abdominal/Gastrointestinal: Abdominal Pain, Nausea Genitourinary Symptoms: No Symptoms Musculoskeletal: No Symptoms Skin: No Symptoms Neurological: No Symptoms Psychological: No Symptoms Endocrine: No Symptoms Hematologic/Lymphatic: No Symptoms Immunological/Allergic: No Symptoms - Past Medical History Pertinent Past Medical History: Yes Neurological History: No Pertinent History ENT History: Cataracts, Other Cardiac History: No Pertinent History Respiratory History: No Pertinent History Endocrine Medical History: Hyperthyroidism Musculoskeletal History: No Pertinent History GI Medical History: Esophageal Disorder History: No Pertinent History Psycho-Social History: No Pertinent History Female Reproductive Disorders: Fibroids Other Medical History: skin ca. pancreatitic tumor - Past Surgical History Past Surgical History: Yes Neuro Surgical History: No Pertinent History Cardiac: No Pertinent History Respiratory: No Pertinent History Gastrointestinal: Cholecystectomy, Exploratory Laparoscopy, Hernia Repair Genitourinary: No Pertinent History Musculoskeletal: No Pertinent History Female Surgical History: Hysterectomy Other Surgical History: Tumor removed from Pancreas 03/18. Esophogeal Dilatation - Social History Smoking Status: Never smoker Exposure to second hand smoke: Yes Drug Use: none Patient Lives Alone: No Significant Family History: no pertinent family hx - Female History Hx Last Menstrual Period: POST Hx Now: No - Nursing Vital Signs Nursing Vital Signs: Initial Vital Signs Temperature 97.8 F 06/11/20 21:44 Pulse Rate 68 06/11/20 21:44 Respiratory Rate 20 06/11/20 21:44 Blood Pressure 133/67 06/11/20 21:44 O2 Sat by Pulse Oximetry 100 06/11/20 21:44 Pain Scale Pain Intensity 6 - Physical Exam General Appearance: no apparent distress, alert Eye Exam: PERRL/EOMI, eyes nml inspection Ears, Nose, Throat Exam: normal ENT inspection, pharynx normal Neck Exam: normal inspection, non-tender, supple, full range of motion Respiratory Exam: normal breath sounds, lungs clear, No chest tenderness Cardiovascular Exam: regular rate/rhythm, normal heart sounds Gastrointestinal/Abdomen Exam: soft, normal bowel sounds, tenderness (Upper abdomen especially in the right upper quadrant and epigastric area), guarding Back Exam: normal inspection, normal range of motion Extremity Exam: normal inspection, normal range of motion, pelvis stable Neurologic Exam: alert, oriented x 3, cooperative Skin Exam: normal color SpO2 Interpretation: normal SpO2: 100 O2 Delivery: Room Air - Course Nursing assessment & vital signs reviewed: Yes EKG Interpreted by Me: RATE, Sinus Rhythm, NORMAL AXIS, prolonged QT interval (ST depression in lateral leads.) Ordered Tests: Active Orders 24 hr Category Date Time Status EKG-ER Only STAT Care 06/11/20 21:51 Active IV Insertion STAT Care 06/11/20 21:51 Active NPO (ED) STAT Care 06/11/20 21:51 Active ABDOMEN AND PELVIS W/0 CONTRAS [CT] Stat Exams 06/11/20 21:52 Taken CHEST WITHOUT CONTRAST [CT] Stat Exams 06/11/20 21:53 Taken AMYLASE Stat Lab 06/11/20 22:02 Completed CBC W DIFF Stat Lab 06/11/20 22:02 Completed CMP Stat Lab 06/11/20 22:02 Completed LIPASE Stat Lab 06/11/20 22:02 Completed TROPONIN Q3H Lab 06/11/20 22:02 Completed TROPONIN Q3H Lab 06/12/20 01:00 Ordered TROPONIN Q3H Lab 06/12/20 04:00 Ordered TROPONIN Q3H Lab 06/12/20 07:00 Ordered TROPONIN Q3H Lab 06/12/20 10:00 Ordered UA W/RFX UR CULTURE Stat Lab 06/11/20 22:20 Completed Transfer Order Routine Transfer 06/11/20 Ordered Medication Summary Generic Name Dose Route Start Last Admin Trade Name Mike PRN Reason Stop Dose Admin Potassium Chloride 20 meq in 100 mls @ 50 mls/hr 06/11/20 22:45 06/11/20 22:56 Potassium Chloride 20 Meq In Water 100ml IV 06/12/20 02:44 50 mls/hr Q2H MONE Administration Magnesium Sulfate/Dextrose 100 mls @ 100 mls/hr 06/11/20 22:45 06/11/20 22:56 Magnesium 1 Gm / 100 Ml D5w IV 06/12/20 00:44 100 mls/hr Q1H MONE Administration Discontinued Medications Generic Name Dose Route Start Last Admin Trade Name Mike PRN Reason Stop Dose Admin Fentanyl Citrate Confirm 06/11/20 22:45 Sublimaze 100 Mcg/2 Ml Administered 06/11/20 22:46 Dose 100 mcg .ROUTE .STK-MED ONE Fentanyl Citrate 50 mcg 06/11/20 22:57 06/11/20 23:02 Sublimaze 100 Mcg/2 Ml IV 06/11/20 22:58 50 mcg STAT ONE Administration Sodium Chloride 1,000 mls @ 500 mls/hr 06/11/20 21:51 06/11/20 22:04 Sodium Chloride 0.9% 1000 Ml IV 06/11/20 23:50 500 mls/hr .Q2H STA Administration Sodium Chloride Confirm 06/11/20 22:00 Sodium Chloride 0.9% 1000 Ml Administered 06/11/20 22:01 Dose 1,000 mls @ ud .ROUTE .STK-MED ONE Magnesium Sulfate Confirm 06/11/20 22:46 Magnesium Sulfate 1 Gm/2 Ml Vial Administered 06/11/20 22:47 Dose 1 gm .ROUTE .STK-MED ONE Morphine Sulfate 4 mg 06/11/20 21:51 06/11/20 22:03 Morphine Sulfate 4 Mg Inj IV 06/11/20 21:52 4 mg STAT ONE Administration Morphine Sulfate Confirm 06/11/20 22:00 Morphine Sulfate 4 Mg Inj Administered 06/11/20 22:01 Dose 4 mg .ROUTE .STK-MED ONE Ondansetron HCl 4 mg 06/11/20 21:51 06/11/20 22:03 Zofran 4 Mg/2 Ml Vial IV 06/11/20 21:52 4 mg STAT ONE Administration Ondansetron HCl Confirm 06/11/20 21:59 Zofran 4 Mg/2 Ml Vial Administered 06/11/20 22:00 Dose 4 mg .ROUTE .STK-MED ONE Pantoprazole Sodium 40 mg 06/11/20 21:51 06/11/20 22:03 Protonix 40 Mg Iv IV 06/11/20 21:52 40 mg STAT ONE Administration Pantoprazole Sodium Confirm 06/11/20 21:59 Protonix 40 Mg Iv Administered 06/11/20 22:00 Dose 40 mg IV .STK-MED ONE Potassium Chloride 40 meq 06/11/20 22:31 06/11/20 22:49 Klor Con 10 Meq PO 06/11/20 22:32 40 meq STAT ONE Administration Potassium Chloride Confirm 06/11/20 22:46 Klor Con 10 Meq Administered 06/11/20 22:47 Dose 40 meq PO .STK-MED ONE Lab/Rad Data: Laboratory Result Diagrams 06/11/20 22:02 06/11/20 22:02 Laboratory Results 06/11/20 06/11/20 06/11/20 Range/Units 22:20 22:02 22:02 WBC (4.0-10.5) K/mm3 RBC (4.1-5.4) M/mm3 Hgb (12.0-16.0) gm/dl Hct (35-47) % MCV (78-100) fl MCH (26-32) pg MCHC (32-36) g/dl RDW (11.5-14.0) % Plt Count (150-450) K/mm3 MPV (7.5-11.0) fl Gran % (36.0-66.0) % Eos # (Auto) (0-0.5) Absolute Lymphs (auto) (1.0-4.6) Absolute Monos (auto) (0.0-1.3) Lymphocytes % (24.0-44.0) % Monocytes % (0.0-12.0) % Eosinophils % (0.00-5.0) % Basophils % (0.0-0.4) % Absolute Granulocytes (1.4-6.9) Basophils # (0-0.4) Sodium 136 L (137-145) mmol/L Potassium 2.7 L* (3.5-5.1) mmol/L Chloride 93 L (98-107) mmol/L Carbon Dioxide 32 H (22-30) mmol/L Anion Gap 13.2 (5-15) MEQ/L BUN 19 H (7-17) mg/dL Creatinine 1.23 H (0.52-1.04) mg/dL Estimated GFR 45.1 ML/MIN Glucose 167 H (74-106) mg/dL Calcium 10.0 (8.4-10.2) mg/dL Total Bilirubin 0.80 (0.2-1.3) mg/dL AST 49 H (14-36) U/L ALT 19 (0-35) U/L Alkaline Phosphatase 111 (38-126) U/L Troponin I < 0.012 (0.000-0.034) ng/mL Serum Total Protein 7.2 (6.3-8.2) g/dL Albumin 4.3 (3.5-5.0) g/dL Amylase 61 (30-110) U/L Lipase 126 (23-300) U/L Urine Color YELLOW (YELLOW) Urine Appearance CLEAR (CLEAR) Urine pH 7.0 (5-6) Ur Specific [place] 1.011 (1.005-1.025) Urine Protein NEGATIVE (Negative) Urine Ketones NEGATIVE (NEGATIVE) Urine Blood NEGATIVE (0-5) [place]/ul Urine Nitrite NEGATIVE (NEGATIVE) Urine Bilirubin NEGATIVE (NEGATIVE) Urine Urobilinogen NEGATIVE (0-1) mg/dL Ur Leukocyte Esterase TRACE (NEGATIVE) Urine WBC (Auto) 3-5 (0-5) /HPF Urine RBC (Auto) NONE (0-2) /HPF U Hyaline Cast (Auto) 6-10 (0-2) /LPF U Epithel Cells (Auto) NONE (FEW) /HPF Urine Bacteria (Auto) NONE (NEGATIVE) /HPF Urine Culture Reflexed NO (NO) Urine Glucose NEGATIVE (NEGATIVE) mg/dL 06/11/20 Range/Units 22:02 WBC 11.4 H (4.0-10.5) K/mm3 RBC 5.09 (4.1-5.4) M/mm3 Hgb 13.7 (12.0-16.0) gm/dl Hct 42.3 (35-47) % MCV 83.1 (78-100) fl MCH 26.9 (26-32) pg MCHC 32.4 (32-36) g/dl RDW 16.0 H (11.5-14.0) % Plt Count 436 (150-450) K/mm3 MPV 8.5 (7.5-11.0) fl Gran % 72.1 H (36.0-66.0) % Eos # (Auto) 0.09 (0-0.5) Absolute Lymphs (auto) 2.45 (1.0-4.6) Absolute Monos (auto) 0.63 (0.0-1.3) Lymphocytes % 21.5 L (24.0-44.0) % Monocytes % 5.5 (0.0-12.0) % Eosinophils % 0.8 (0.00-5.0) % Basophils % 0.1 (0.0-0.4) % Absolute Granulocytes 8.19 H (1.4-6.9) Basophils # 0.01 (0-0.4) Sodium (137-145) mmol/L Potassium (3.5-5.1) mmol/L Chloride (98-107) mmol/L Carbon Dioxide (22-30) mmol/L Anion Gap (5-15) MEQ/L BUN (7-17) mg/dL Creatinine (0.52-1.04) mg/dL Estimated GFR ML/MIN Glucose (74-106) mg/dL Calcium (8.4-10.2) mg/dL Total Bilirubin (0.2-1.3) mg/dL AST (14-36) U/L ALT (0-35) U/L Alkaline Phosphatase (38-126) U/L Troponin I (0.000-0.034) ng/mL Serum Total Protein (6.3-8.2) g/dL Albumin (3.5-5.0) g/dL Amylase (30-110) U/L Lipase (23-300) U/L Urine Color (YELLOW) Urine Appearance (CLEAR) Urine pH (5-6) Ur Specific [place] (1.005-1.025) Urine Protein (Negative) Urine Ketones (NEGATIVE) Urine Blood (0-5) [place]/ul Urine Nitrite (NEGATIVE) Urine Bilirubin (NEGATIVE) Urine Urobilinogen (0-1) mg/dL Ur Leukocyte Esterase (NEGATIVE) Urine WBC (Auto) (0-5) /HPF Urine RBC (Auto) (0-2) /HPF U Hyaline Cast (Auto) (0-2) /LPF U Epithel Cells (Auto) (FEW) /HPF Urine Bacteria (Auto) (NEGATIVE) /HPF Urine Culture Reflexed (NO) Urine Glucose (NEGATIVE) mg/dL - Progress Progress: improved, re-examined Progress Note: 06/11/20 23:56 74 years old is evaluated for epigastric/substernal chest pain. She is given symptomatic treatment for pain. On reevaluation feeling better. EKG showed ST depression in lateral leads but no ST elevation. Work-up showed normal white count, hypokalemia with potassium of 2.7, started oral and IV replacement. She is also given 2 g of mag IV. I have obtained CT chest and abdomen which showed small nodules in the lungs which were there in the CT done 2 months ago at [facility]. It also showed pancreatic cyst but no abscess and no findings of acute pancreatitis in the lab/CT. Patient does have history of pancreatic cyst in the past which is probably the reason for her epigastric pain. Patient does need to come in for potassium replacement and chest pain rule out. Discussed with and patient is admitted Discussed with .: Kaleigh Will see patient in: hospital (observation) Counseled pt/family regarding: lab results, diagnosis, rad results - Departure Departure Disposition: Observation Clinical Impression: Hypokalemia, Pancreatic cyst, Chest pain, rule out acute myocardial infarction Condition: Stable Critical Care Time: Yes Critical Care Time(excluding separately billable procedures): Critical 30-74 mins Referrals: JACKSON REY MD [Primary Care Provider] -
[2020-06-11 22:42] LABS: Appearance CLEAR (CLEAR); Bilirubin NEGATIVE (NEGATIVE); Blood NEGATIVE Ery/ul (0-5); Glucose NEGATIVE (NEGATIVE); Ketones NEGATIVE (NEGATIVE); Leukocyte Esterase TRACE (NEGATIVE); Nitrite NEGATIVE (NEGATIVE); Protein,Urine Dip NEGATIVE (Negative); Specific Gravity 1.011 (1.005-1.025); Urobilinogen NEGATIVE mg/dL (0-1)
[2020-06-11] MEDS ORDERED: SUBLIMAZE 100 MCG/2 ML ONE (22:45)
[2020-06-11] MEDS ORDERED: Magnesium Sulfate 1 GM/2 ML VIAL ONE (22:46)
[2020-06-11] MEDS: Magnesium 1 Gm / 100 Ml D5W*** 100 ML IV SCH (22:56)
[2020-06-11] MEDS: POTASSIUM CHLORIDE 20 mEq IN WATER 100ML 20 MEQ/100 ML BAG IV SCH (22:56)
[2020-06-11] MEDS ORDERED: SUBLIMAZE 100 MCG/2 ML IV ONE (22:57)
[2020-06-12] MEDS ORDERED: Zofran 4 MG/2 ML VIAL IV PRN (00:14)
[2020-06-12] MEDS ORDERED: DUONEB 0.5-3 MG/3 ml Neb IH PRN (00:14)
[2020-06-12] MEDS ORDERED: MORPHINE SULFATE 2 MG INJ IV PRN (00:14)
[2020-06-12] MEDS ORDERED: TYLENOL 325 MG PO PRN (00:14)
[2020-06-12] MEDS: Magnesium 1 Gm / 100 Ml D5W*** 100 ML IV SCH (00:19)
[2020-06-12] MEDS ORDERED: BABY ASPIRIN 81 MG CHEW PO ONE (00:37)
[2020-06-12] MEDS: POTASSIUM CHLORIDE 20 mEq IN WATER 100ML 20 MEQ/100 ML BAG IV SCH (01:37)
[2020-06-12] MEDS ORDERED: Sodium Chloride 0.9% 500 ML 500 ML IV ONE (03:13)
[2020-06-12] MEDS ORDERED: Sodium Chloride 0.9% 500 ML 500 ML IV SCH (03:15)
[2020-06-12 04:46] LABS: ALBUMIN 3.3 g/dL (3.5-5.0); ANION GAP 8.3 MEQ/L (5-15); BILIRUBIN,TOTAL 1.3 mg/dL (0.2-1.3); Calcium 9.1 mg/dL (8.4-10.2); Creatinine 1 1.11 mg/dL (0.52-1.04); EST GLOMERULAR FILTRATION RATE 50.8 ML/MIN; Potassium 4.4 mmol/L (3.5-5.1); Total Protein 5.5 g/dL (6.3-8.2)
[2020-06-12 05:14] LABS: Absolute Neutrophil Ct (ANC) 4.72 (1.4-6.9); BASOPHIL % 0.3 % (0.0-0.4); Basophil (Absolute #) 0.02 (0-0.4); Eosinophil % 1.2 % (0.00-5.0); Eosinophil (Absolute #) 0.08 (0-0.5); Hematocrit 36.4 % (35-47); Hemoglobin 11.4 gm/dl (12.0-16.0); Lymphocytes % 20.8 % (24.0-44.0); Mean Cell Volume 86.1 fl (78-100); Mean Corpuscular Hgb Concent. 31.3 g/dl (32-36); Mean Platelet Volume 8.5 fl (7.5-11.0); Monocyte (Absolute #) 0.52 (0.0-1.3); Monocytes % 7.7 % (0.0-12.0); Platelet Count 333 K/mm3 (150-450); Red Blood Count 4.23 M/mm3 (4.1-5.4); White Blood Count 6.7 K/mm3 (4.0-10.5)
[2020-06-12 08:00] VITALS: PULSE 57
[2020-06-12] MEDS ORDERED: NORCO 7.5/325 MG TAB PO PRN (09:06)
[2020-06-12] MEDS ORDERED: ZYLOPRIM 100 MG PO PRN (09:06)
[2020-06-12] MEDS ORDERED: NON-FORMULARY ITEM (Ondansetron Hcl [Zofran] 4 MG) PO PRN (09:06)
[2020-06-12] MEDS ORDERED: Indocin 25 MG PO PRN (09:06)
[2020-06-12] MEDS ORDERED: ZOFRAN ODT 4 MG PO PRN (09:12)
--- NOTE | 2020-06-12 09:16 | XRAY ---
Indication: Chest pain and nausea. History pancreatic cancer with surgery March 2020. Multiple contiguous axial images obtained through the chest without contrast due to poor renal function. Comparison: January 18, 2014. Lungs are fully inflated again with lingula fibrosis/scarring. Previous lingula noncalcified nodule measures 10 x 15 mm. I measure this to be 9 x 10 mm on previous exam. Stable 9 mm medial left lower lobe noncalcified nodule abutting the heart and 4 mm right middle lobe noncalcified nodule. Right costophrenic angle demonstrates 5 mm noncalcified nodule previous obscured. No infiltrate, consolidation, or effusion. Heart is not enlarged. Aorta is normal in course and caliber. Interval enlarging fluid-filled small hiatal hernia. Bony thorax intact with mild degenerative changes throughout the spine. CT abdomen/pelvis reported separately. Impression: 1. Bilateral indeterminant noncalcified nodules as detailed. Majority appears stable with the largest very minimally enlarged over the years and are favored to be benign given stability. 2. Enlarging small hiatal hernia. 3. Remaining CT chest without contrast exam is negative. Comment: Preliminary interpretation was made by [facility]. No critical discrepancy.
--- NOTE | 2020-06-12 09:17 | XRAY ---
Indication: Chest pain and nausea. History pancreatic cancer with surgery March 2020. Multiple contiguous axial images obtained through the abdomen and pelvis without contrast due to poor renal function. Comparison: April 28, 2011. CT chest reported separately. Noncontrasted stomach mildly fluid filled with presumed ingested medication/pills. Noncontrasted stomach and bowel loops appear nonobstructed. Again minimal descending and sigmoid diverticulosis without diverticulitis. Appendectomy, cholecystectomy, and hysterectomy reported. Tail of pancreas demonstrates new 3.4 cm indeterminant noncalcified cystic mass. No suspicious pancreatic calcifications or ductal dilatation. Remaining liver, pancreas, spleen, adrenal glands, kidneys, ureters, and bladder appear unremarkable for noncontrast exam. New minimal aortoiliac calcifications without AAA. Osseous structures intact again with mild degenerative changes of the lower lumbar spine. New intact large ventral hernia mesh graft. Impression: 1. New 3.4 cm indeterminant pancreatic cystic mass. 2. Again colonic diverticulosis without diverticulitis. 3. New ventral hernia mesh graft without complications. 4. Remaining CT abdomen/pelvis without contrast exam is negative. Comment: Preliminary interpretation was made by [facility]. No critical discrepancy.
[2020-06-12] MEDS ORDERED: Lasix 40 MG PO SCH (10:00)
[2020-06-12] MEDS ORDERED: PROTONIX 40 MG IV IV SCH (10:00)
[2020-06-12] MEDS ORDERED: TRIAMTERENE PO SCH (10:00)
[2020-06-12] MEDS ORDERED: HYDROCHLOROTHIAZID PO SCH (10:00)
[2020-06-12] MEDS ORDERED: SYNTHROID 50 MCG PO SCH (10:00)
[2020-06-12] MEDS ORDERED: Maxzide-25MG Tablet PO SCH (10:00)
[2020-06-12] MEDS ORDERED: NON-FORMULARY ITEM (Potassium Chloride 20 Meq Tab [Potassium Chloride 20 Meq Tablet] 20 ME PO SCH (10:00)
[2020-06-12] MEDS ORDERED: ceLEXa 20 MG PO SCH (10:00)
[2020-06-12] MEDS: Klor Con 10 MEQ PO SCH ×2 (10:21→12:45)
--- NOTE | 2020-06-12 10:59 | PCM.HP ---
History of Present Illness - Chief Complaint Chief Complaint: chest pain rule out IA History of Present Illness: is a 74 years old female with multiple medical problems including pancreatic mass status post surgical resection at presented in the ER with chief complaint of upper abdominal pain off and on for the last 3 days with progressive worsening, dull aching to sharp with radiation to the center of the chest without any significant aggravating or relieving factors, associated with nausea but no vomiting. Also feels some shortness of breath with it. Patient reports symptoms similar to last time when she had a pancreatic problem but never had a chest pain with it. She has a history of congestive heart failure but no CAD.74 year old female. - Review of Systems Constitutional: No Fever, No Chills Eyes: No Symptoms Ears, Nose, & Throat: No Symptoms Respiratory: No Cough, No Short Of Breath Cardiac: Chest Pain, No Edema, No Syncope Abdominal/Gastrointestinal: Abdominal Pain, No Nausea, No Vomiting, No Diarrhea Genitourinary Symptoms: No Dysuria Musculoskeletal: No Back Pain, No Neck Pain Skin: No Rash Neurological: No Dizziness, No Focal Weakness, No Sensory Changes Psychological: No Symptoms Endocrine: No Symptoms Hematologic/Lymphatic: No Symptoms Immunological/Allergic: No Symptoms Medications & Allergies Home Medications: Home Medication List Citalopram Hydrobromide 20 mg* [ceLEXa 20 MG] 40 mg PO DAILY 07/12/12 [History Confirmed 06/11/20] Levothyroxine Sodium 50 Mcg [Synthroid 50 Mcg] 50 mcg PO DAILY 07/12/12 [History Confirmed 06/11/20] Potassium Chloride 20 Meq Tab [Potassium Chloride 20 MEQ TABLET] 20 meq PO QID 07/12/12 [History Confirmed 06/11/20] Albuterol 2.5 mg/3 ml Neb [Proventil 2.5 mg/3 ml Neb] 1 neb IH Q6H 06/07/13 [History Confirmed 06/11/20] Furosemide [Lasix] 40 mg PO DAILY 06/07/13 [History Confirmed 06/11/20] Allopurinol [Zyloprim] 100 mg PO BIDPRN PRN 01/17/14 [History Confirmed 06/11/20] Hydrocodone Bit/Acetaminophen [[place] 7.5-325 Tablet] 1 each PO Q6HPRN PRN 03/20/20 [History Confirmed 06/11/20] Indomethacin 25 mg [Indocin 25 MG] 25 mg PO TIDPRN PRN 03/20/20 [History Confirmed 06/11/20] Ondansetron HCl [Zofran] 4 mg PO Q8HPRN PRN 03/20/20 [History Confirmed 06/11/20] Triamterene/Hydrochlorothiazid [Dyazide 37.5-25 Capsule] 1 tab PO BID 03/20/20 [History Confirmed 06/11/20] Allergies/Adverse Reactions: Allergies Allergy/AdvReac Type Severity Reaction Status Date / Time codeine [Codeine] Allergy Severe Fainting Verified 06/11/20 21:54 Penicillins Allergy Severe Swelling Verified 06/11/20 21:54 shellfish derived Allergy Intermediate Difficulty Verified 06/11/20 21:54 Breathing - Past Medical History Past Medical History: Yes Neurological History: No Pertinent History ENT History: Cataracts, Other Cardiac History: No Pertinent History Respiratory History: No Pertinent History Endocrine Medical History: Hyperthyroidism Musculoskelatal History: No Pertinent History GI Medical History: Esophageal Disorder History: No Pertinent History Pyscho-Social History: No Pertinent History Reproductive Disorders: Fibroids Comment: skin ca. pancreatitic tumor - Female History Hx Last Menstrual Period: POST Are you now?: No - Past Surgical History Past Surgical History: Yes Neuro Surgical History: No Pertinent History Cardiac History: No Pertinent History Respiratory Surgery: No Pertinent History GI Surgical History: Cholecystectomy, Exploratory Laparoscopy, Hernia Repair Genitourinary Surgical Hx: No Pertinent History Musculskeletal Surgical Hx: No Pertinent History Female Surgical History: Hysterectomy Other Surgical History: Tumor removed from Pancreas 03/18. Esophogeal Dilatation - Social History Smoking Status: Never smoker Exposure to second hand smoke: No Alcohol: None Drug Use: none Significant Family History: no pertinent family hx - Physical Exam Vital Signs: Vital Signs - 24 hr Temp Pulse Pulse Resp BP Pulse Ox 06/12/20 07:58 97.6 F 57 L 16 113/58 99 06/12/20 07:16 62 16 99 06/12/20 04:30 97.4 F 58 L 16 116/57 99 06/12/20 04:07 60 15 95 06/12/20 02:43 97.4 F 66 16 159/59 99 06/12/20 00:00 64 20 121/56 97 06/11/20 23:58 100 06/11/20 23:00 74 18 128/72 99 06/11/20 22:40 70 21 125/73 99 06/11/20 22:10 74 06/11/20 21:44 97.8 F 68 20 133/67 100 General Appearance: no apparent distress, alert Neurologic Exam: alert, oriented x 3, cooperative, normal mood/affect, nml cerebellar function, nml station & gait, sensation nml, No motor deficits Eye Exam: PERRL/EOMI, eyes nml inspection Ears, Nose, Throat Exam: normal ENT inspection, TMs normal, pharynx normal, moist mucous membranes Neck Exam: normal inspection, non-tender, supple, full range of motion Respiratory Exam: normal breath sounds, lungs clear, No respiratory distress Cardiovascular Exam: regular rate/rhythm, normal heart sounds, normal peripheral pulses Gastrointestinal/Abdomen Exam: soft, tenderness, No mass Back Exam: normal inspection, normal range of motion, No CVA tenderness, No vertebral tenderness Extremity Exam: normal inspection, normal range of motion, pelvis stable Skin Exam: normal color, warm, dry, No rash Lymphatic Exam: No adenopathy Results - Labs Lab/Micro Results: Lab Results-Last 24 Hours 06/11/20 06/11/20 06/11/20 Range/Units 22:02 22:02 22:02 WBC 11.4 H (4.0-10.5) K/mm3 RBC 5.09 (4.1-5.4) M/mm3 Hgb 13.7 (12.0-16.0) gm/dl Hct 42.3 (35-47) % MCV 83.1 (78-100) fl MCH 26.9 (26-32) pg MCHC 32.4 (32-36) g/dl RDW 16.0 H (11.5-14.0) % Plt Count 436 (150-450) K/mm3 MPV 8.5 (7.5-11.0) fl Gran % 72.1 H (36.0-66.0) % Eos # (Auto) 0.09 (0-0.5) Absolute Lymphs (auto) 2.45 (1.0-4.6) Absolute Monos (auto) 0.63 (0.0-1.3) Lymphocytes % 21.5 L (24.0-44.0) % Monocytes % 5.5 (0.0-12.0) % Eosinophils % 0.8 (0.00-5.0) % Basophils % 0.1 (0.0-0.4) % Absolute Granulocytes 8.19 H (1.4-6.9) Basophils # 0.01 (0-0.4) Sodium 136 L (137-145) mmol/L Potassium 2.7 L* (3.5-5.1) mmol/L Chloride 93 L (98-107) mmol/L Carbon Dioxide 32 H (22-30) mmol/L Anion Gap 13.2 (5-15) MEQ/L BUN 19 H (7-17) mg/dL Creatinine 1.23 H (0.52-1.04) mg/dL Estimated GFR 45.1 ML/MIN Glucose 167 H (74-106) mg/dL Calcium 10.0 (8.4-10.2) mg/dL Total Bilirubin 0.80 (0.2-1.3) mg/dL AST 49 H (14-36) U/L ALT 19 (0-35) U/L Alkaline Phosphatase 111 (38-126) U/L Troponin I < 0.012 (0.000-0.034) ng/mL Serum Total Protein 7.2 (6.3-8.2) g/dL Albumin 4.3 (3.5-5.0) g/dL Amylase 61 (30-110) U/L Lipase 126 (23-300) U/L Urine Color (YELLOW) Urine Appearance (CLEAR) Urine pH (5-6) Ur Specific [place] (1.005-1.025) Urine Protein (Negative) Urine Ketones (NEGATIVE) Urine Blood (0-5) [place]/ul Urine Nitrite (NEGATIVE) Urine Bilirubin (NEGATIVE) Urine Urobilinogen (0-1) mg/dL Ur Leukocyte Esterase (NEGATIVE) Urine WBC (Auto) (0-5) /HPF Urine RBC (Auto) (0-2) /HPF U Hyaline Cast (Auto) (0-2) /LPF U Epithel Cells (Auto) (FEW) /HPF Urine Bacteria (Auto) (NEGATIVE) /HPF Urine Culture Reflexed (NO) Urine Glucose (NEGATIVE) mg/dL 06/11/20 06/12/2021 Range/Units 22:20 01:03 04:28 WBC (4.0-10.5) K/mm3 RBC (4.1-5.4) M/mm3 Hgb (12.0-16.0) gm/dl Hct (35-47) % MCV (78-100) fl MCH (26-32) pg MCHC (32-36) g/dl RDW (11.5-14.0) % Plt Count (150-450) K/mm3 MPV (7.5-11.0) fl Gran % (36.0-66.0) % Eos # (Auto) (0-0.5) Absolute Lymphs (auto) (1.0-4.6) Absolute Monos (auto) (0.0-1.3) Lymphocytes % (24.0-44.0) % Monocytes % (0.0-12.0) % Eosinophils % (0.00-5.0) % Basophils % (0.0-0.4) % Absolute Granulocytes (1.4-6.9) Basophils # (0-0.4) Sodium (137-145) mmol/L Potassium (3.5-5.1) mmol/L Chloride (98-107) mmol/L Carbon Dioxide (22-30) mmol/L Anion Gap (5-15) MEQ/L BUN (7-17) mg/dL Creatinine (0.52-1.04) mg/dL Estimated GFR ML/MIN Glucose (74-106) mg/dL Calcium (8.4-10.2) mg/dL Total Bilirubin (0.2-1.3) mg/dL AST (14-36) U/L ALT (0-35) U/L Alkaline Phosphatase (38-126) U/L Troponin I < 0.012 < 0.012 (0.000-0.034) ng/mL Serum Total Protein (6.3-8.2) g/dL Albumin (3.5-5.0) g/dL Amylase (30-110) U/L Lipase (23-300) U/L Urine Color YELLOW (YELLOW) Urine Appearance CLEAR (CLEAR) Urine pH 7.0 (5-6) Ur Specific [place] 1.011 (1.005-1.025) Urine Protein NEGATIVE (Negative) Urine Ketones NEGATIVE (NEGATIVE) Urine Blood NEGATIVE (0-5) [place]/ul Urine Nitrite NEGATIVE (NEGATIVE) Urine Bilirubin NEGATIVE (NEGATIVE) Urine Urobilinogen NEGATIVE (0-1) mg/dL Ur Leukocyte Esterase TRACE (NEGATIVE) Urine WBC (Auto) 3-5 (0-5) /HPF Urine RBC (Auto) NONE (0-2) /HPF U Hyaline Cast (Auto) 6-10 (0-2) /LPF U Epithel Cells (Auto) NONE (FEW) /HPF Urine Bacteria (Auto) NONE (NEGATIVE) /HPF Urine Culture Reflexed NO (NO) Urine Glucose NEGATIVE (NEGATIVE) mg/dL 06/12/20 06/12/20 06/12/20 Range/Units 04:28 04:28 07:00 WBC 6.7 (4.0-10.5) K/mm3 RBC 4.23 (4.1-5.4) M/mm3 Hgb 11.4 L (12.0-16.0) gm/dl Hct 36.4 (35-47) % MCV 86.1 (78-100) fl MCH 27.0 (26-32) pg MCHC 31.3 L (32-36) g/dl RDW 16.0 H (11.5-14.0) % Plt Count 333 (150-450) K/mm3 MPV 8.5 (7.5-11.0) fl Gran % 70.0 H (36.0-66.0) % Eos # (Auto) 0.08 (0-0.5) Absolute Lymphs (auto) 1.40 (1.0-4.6) Absolute Monos (auto) 0.52 (0.0-1.3) Lymphocytes % 20.8 L (24.0-44.0) % Monocytes % 7.7 (0.0-12.0) % Eosinophils % 1.2 (0.00-5.0) % Basophils % 0.3 (0.0-0.4) % Absolute Granulocytes 4.72 (1.4-6.9) Basophils # 0.02 (0-0.4) Sodium 136 L (137-145) mmol/L Potassium 4.4 D (3.5-5.1) mmol/L Chloride 101 (98-107) mmol/L Carbon Dioxide 32 H (22-30) mmol/L Anion Gap 8.3 (5-15) MEQ/L BUN 17 (7-17) mg/dL Creatinine 1.11 H (0.52-1.04) mg/dL Estimated GFR 50.8 ML/MIN Glucose 134 H (74-106) mg/dL Calcium 9.1 (8.4-10.2) mg/dL Total Bilirubin 1.30 (0.2-1.3) mg/dL AST 741 H (14-36) U/L ALT 339 H (0-35) U/L Alkaline Phosphatase 168 H (38-126) U/L Troponin I < 0.012 (0.000-0.034) ng/mL Serum Total Protein 5.5 L (6.3-8.2) g/dL Albumin 3.3 L (3.5-5.0) g/dL Amylase (30-110) U/L Lipase (23-300) U/L Urine Color (YELLOW) Urine Appearance (CLEAR) Urine pH (5-6) Ur Specific [place] (1.005-1.025) Urine Protein (Negative) Urine Ketones (NEGATIVE) Urine Blood (0-5) [place]/ul Urine Nitrite (NEGATIVE) Urine Bilirubin (NEGATIVE) Urine Urobilinogen (0-1) mg/dL Ur Leukocyte Esterase (NEGATIVE) Urine WBC (Auto) (0-5) /HPF Urine RBC (Auto) (0-2) /HPF U Hyaline Cast (Auto) (0-2) /LPF U Epithel Cells (Auto) (FEW) /HPF Urine Bacteria (Auto) (NEGATIVE) /HPF Urine Culture Reflexed (NO) Urine Glucose (NEGATIVE) mg/dL - Radiology Impressions Radiology Exams & Impressions: Radiology Procedures Category Date Time Status ABDOMEN AND PELVIS W/0 CONTRAS [CT] Stat Exams 06/11/20 21:52 Completed CHEST WITHOUT CONTRAST [CT] Stat Exams 06/11/20 21:53 Completed - Other Procedures and Tests Respiratory Therapy 06/12/20 00:14 Oxygen Nasal Cannula 2 lpm 06/12/20 04:11 Respiratory Therapy Assessment DAILY Assessment/Plan (1) Chest pain, rule out acute myocardial infarction Current Visit: Yes Status: Acute Assessment & Plan: Last Vital Signs Temp 97.6 F 06/12/20 07:58 Pulse 57 L 06/12/20 07:58 Resp 16 06/12/20 07:58 BP 113/58 06/12/20 07:58 Pulse Ox 99 06/12/20 07:58 Allergies codeine [Codeine] Allergy (Severe, Verified 06/11/20 21:54) Fainting Penicillins Allergy (Severe, Verified 06/11/20 21:54) Swelling shellfish derived Allergy (Intermediate, Verified 06/11/20 21:54) Difficulty Breathing Active Medications Acetaminophen (Tylenol 325 Mg) 650 mg PO Q4H PRN PRN PRN Reason: PAIN AND/OR FEVER Stop: 07/12/20 00:13 Last Admin: 06/12/20 08:09 Dose: 650 mg Documented by: Hydrocodone Bitart/Acetaminophen ([place] 7.5/325 Mg Tab) 1 tab PO Q6HPRN PRN PRN Reason: PAIN Stop: 06/17/20 09:05 Albuterol Sulfate (Proventil 2.5 Mg/3 Ml Neb) 2.5 mg IH Q6HRT [facility] Stop: 07/12/20 12:59 Albuterol/Ipratropium (Duoneb 0.5-3 Mg/3 Ml Neb) 3 ml IH Q4HPRN PRN PRN Reason: SHORTNESS OF BREATH/WHEEZING Stop: 07/12/20 00:13 Allopurinol (Zyloprim 100 Mg) 100 mg PO BIDPRN PRN PRN Reason: JOINT PAIN Stop: 07/12/20 09:05 Citalopram Hydrobromide (Celexa 20 Mg) 40 mg PO DAILY [facility] Stop: 07/12/20 09:59 Last Admin: 06/12/20 10:21 Dose: 40 mg Documented by: Furosemide (Lasix 40 Mg) 40 mg PO DAILY [facility] Stop: 07/12/20 09:59 Last Admin: 06/12/20 10:21 Dose: 40 mg Documented by: Sodium Chloride (Sodium Chloride 0.9% 500 Ml) 500 mls @ 50 mls/hr IV .Q10H [facility] Stop: 06/12/20 13:14 Last Admin: 06/12/20 03:16 Dose: 50 mls/hr Documented by: Indomethacin (Indocin 25 Mg) 25 mg PO TIDPRN PRN PRN Reason: PAIN Stop: 07/12/20 09:05 Levothyroxine Sodium (Synthroid 50 Mcg) 50 mcg PO DAILY [facility] Stop: 07/12/20 09:59 Last Admin: 06/12/20 10:21 Dose: 50 mcg Documented by: Morphine Sulfate (Morphine Sulfate 2 Mg Inj) 2 mg IV Q4H PRN PRN PRN Reason: PAIN Stop: 06/17/20 00:13 Ondansetron HCl (Zofran 4 Mg/2 Ml Vial) 4 mg IV Q6H PRN PRN PRN Reason: NAUSEA/VOMITING Stop: 07/12/20 00:13 Ondansetron HCl (Zofran Odt 4 Mg) 4 mg PO Q8HPRN PRN PRN Reason: NAUSEA Stop: 07/12/20 09:11 Pantoprazole Sodium (Protonix 40 Mg Iv) 40 mg IV Q24H10 [facility] Stop: 07/12/20 09:59 Last Admin: 06/12/20 10:21 Dose: 40 mg Documented by: Potassium Chloride (Klor Con 10 Meq) 20 meq PO QID [facility] Stop: 07/12/20 09:59 Last Admin: 06/12/20 10:21 Dose: 20 meq Documented by: Triamterene/Hydrochlorothiazide (Maxzide-25mg Tablet) 1 tab PO BID DIURETIC [facility] Stop: 07/12/20 09:59 Last Admin: 06/12/20 10:21 Dose: 1 tab Documented by: Intake & Output 06/11/20 06/12/20 11:59 11:59 Intake Total 940 Balance 940 Weight 52.4 kg Orders 06/12/20 03:15 NaCl 0.9% 500 ml [Sodium Chloride 0.9% 500 ML] 500 ml IV 50 mls/hr 06/12/20 04:11 Pulse Oximetry .spot check Respiratory Therapy Assessment DAILY 06/12/20 09:06 Allopurinol 100 mg [Zyloprim 100 mg] 100 mg PO BIDPRN PRN Hydrocodone /APAP 7.5/325 mg [[place] 7.5/325 mg Tab] 1 tab PO Q6HPRN PRN Indomethacin 25 mg [Indocin 25 MG] 25 mg PO TIDPRN PRN 06/12/20 09:12 Ondansetron ODT 4 MG [Zofran Odt 4 mg] 4 mg PO Q8HPRN PRN 06/12/20 10:00 Citalopram Hydrobromide 20 mg* [ceLEXa 20 MG] 40 mg PO DAILY Furosemide 40 mg [Lasix 40 MG] 40 mg PO DAILY Hctz/Triamteren 37.5 mg/25 mg* [Maxzide-25MG Tablet] 1 tab PO BID DIURETIC Levothyroxine Sodium 50 Mcg [Synthroid 50 Mcg] 50 mcg PO DAILY Potassium Chloride 10 Meq Tab* [Klor Con 10 MEQ] 20 meq PO QID 06/12/20 13:00 Albuterol 2.5 mg/3 ml Neb [Proventil 2.5 mg/3 ml Neb] 2.5 mg IH Q6HRT Lab Tests 06/11/20 06/11/20 06/11/20 22:02 22:02 22:02 WBC 11.4 H RBC 5.09 Hgb 13.7 Hct 42.3 MCV 83.1 MCH 26.9 MCHC 32.4 RDW 16.0 H Plt Count 436 MPV 8.5 Gran % 72.1 H Eos # (Auto) 0.09 Absolute Lymphs (auto) 2.45 Absolute Monos (auto) 0.63 Lymphocytes % 21.5 L Monocytes % 5.5 Eosinophils % 0.8 Basophils % 0.1 Absolute Granulocytes 8.19 H Basophils # 0.01 Sodium 136 L Potassium 2.7 L* Chloride 93 L Carbon Dioxide 32 H Anion Gap 13.2 BUN 19 H Creatinine 1.23 H Estimated GFR 45.1 Glucose 167 H Calcium 10.0 Total Bilirubin 0.80 AST 49 H ALT 19 Alkaline Phosphatase 111 Troponin I < 0.012 Serum Total Protein 7.2 Albumin 4.3 Amylase 61 Lipase 126 Urine Color Urine Appearance Urine pH Ur Specific [place] Urine Protein Urine Ketones Urine Blood Urine Nitrite Urine Bilirubin Urine Urobilinogen Ur Leukocyte Esterase Urine WBC (Auto) Urine RBC (Auto) U Hyaline Cast (Auto) U Epithel Cells (Auto) Urine Bacteria (Auto) Urine Culture Reflexed Urine Glucose 06/11/20 06/12/2006/12/21 22:20 01:03 04:28 WBC RBC Hgb Hct MCV MCH MCHC RDW Plt Count MPV Gran % Eos # (Auto) Absolute Lymphs (auto) Absolute Monos (auto) Lymphocytes % Monocytes % Eosinophils % Basophils % Absolute Granulocytes Basophils # Sodium Potassium Chloride Carbon Dioxide Anion Gap BUN Creatinine Estimated GFR Glucose Calcium Total Bilirubin AST ALT Alkaline Phosphatase Troponin I < 0.012 < 0.012 Serum Total Protein Albumin Amylase Lipase Urine Color YELLOW Urine Appearance CLEAR Urine pH 7.0 Ur Specific [place] 1.011 Urine Protein NEGATIVE Urine Ketones NEGATIVE Urine Blood NEGATIVE Urine Nitrite NEGATIVE Urine Bilirubin NEGATIVE Urine Urobilinogen NEGATIVE Ur Leukocyte Esterase TRACE Urine WBC (Auto) 3-5 Urine RBC (Auto) NONE U Hyaline Cast (Auto) 6-10 U Epithel Cells (Auto) NONE Urine Bacteria (Auto) NONE Urine Culture Reflexed NO Urine Glucose NEGATIVE 06/12/20 06/12/20 06/12/20 04:28 04:28 07:00 WBC 6.7 RBC 4.23 Hgb 11.4 L Hct 36.4 MCV 86.1 MCH 27.0 MCHC 31.3 L RDW 16.0 H Plt Count 333 MPV 8.5 Gran % 70.0 H Eos # (Auto) 0.08 Absolute Lymphs (auto) 1.40 Absolute Monos (auto) 0.52 Lymphocytes % 20.8 L Monocytes % 7.7 Eosinophils % 1.2 Basophils % 0.3 Absolute Granulocytes 4.72 Basophils # 0.02 Sodium 136 L Potassium 4.4 D Chloride 101 Carbon Dioxide 32 H Anion Gap 8.3 BUN 17 Creatinine 1.11 H Estimated GFR 50.8 Glucose 134 H Calcium 9.1 Total Bilirubin 1.30 AST 741 H ALT 339 H Alkaline Phosphatase 168 H Troponin I < 0.012 Serum Total Protein 5.5 L Albumin 3.3 L Amylase Lipase Urine Color Urine Appearance Urine pH Ur Specific [place] Urine Protein Urine Ketones Urine Blood Urine Nitrite Urine Bilirubin Urine Urobilinogen Ur Leukocyte Esterase Urine WBC (Auto) Urine RBC (Auto) U Hyaline Cast (Auto) U Epithel Cells (Auto) Urine Bacteria (Auto) Urine Culture Reflexed Urine Glucose Code(s): R07.9 - CHEST PAIN, UNSPECIFIED (2) Hypokalemia Current Visit: Yes Status: Acute Code(s): E87.6 - HYPOKALEMIA (3) Pancreatic cyst Current Visit: Yes Status: Acute Code(s): K86.2 - CYST OF PANCREAS
[2020-06-12 12:06] VITALS: BP 120/58; O2SAT 100
[2020-06-12] MEDS ORDERED: Nitrostat 0.4 MG Tablet SL PRN (12:20)
[2020-06-12] MEDS ORDERED: PROVENTIL 2.5 MG/3 ML NEB IH SCH (13:00)
--- NOTE | 2020-06-12 13:00 | PCM.DS ---
Discharge Summary Date of Admission: 06/12/20 00:06 Admitting Physician: JACKSON REY Primary Care Provider: JACKSON REY Allergies Allergies codeine [Codeine] Allergy (Severe, Verified 06/11/20 21:54) Fainting Penicillins Allergy (Severe, Verified 06/11/20 21:54) Swelling shellfish derived Allergy (Intermediate, Verified 06/11/20 21:54) Difficulty Breathing Hospital Summary - Hospital Course Hospital Course: Last Vital Signs Temp 97.6 F 06/12/20 12:00 Pulse 57 L 06/12/20 12:00 Resp 16 06/12/20 12:00 BP 120/58 06/12/20 12:00 Pulse Ox 100 06/12/20 12:00 Allergies codeine [Codeine] Allergy (Severe, Verified 06/11/20 21:54) Fainting Penicillins Allergy (Severe, Verified 06/11/20 21:54) Swelling shellfish derived Allergy (Intermediate, Verified 06/11/20 21:54) Difficulty Breathing Active Medications Acetaminophen (Tylenol 325 Mg) 650 mg PO Q4H PRN PRN PRN Reason: PAIN AND/OR FEVER Stop: 07/12/20 00:13 Last Admin: 06/12/20 08:09 Dose: 650 mg Documented by: Hydrocodone Bitart/Acetaminophen ([place] 7.5/325 Mg Tab) 1 tab PO Q6HPRN PRN PRN Reason: PAIN Stop: 06/17/20 09:05 Last Admin: 06/12/20 11:50 Dose: 1 tab Documented by: Albuterol Sulfate (Proventil 2.5 Mg/3 Ml Neb) 2.5 mg IH Q6HRT MONE Stop: 07/12/20 12:59 Albuterol/Ipratropium (Duoneb 0.5-3 Mg/3 Ml Neb) 3 ml IH Q4HPRN PRN PRN Reason: SHORTNESS OF BREATH/WHEEZING Stop: 07/12/20 00:13 Allopurinol (Zyloprim 100 Mg) 100 mg PO BIDPRN PRN PRN Reason: JOINT PAIN Stop: 07/12/20 09:05 Citalopram Hydrobromide (Celexa 20 Mg) 40 mg PO DAILY [facility] Stop: 07/12/20 09:59 Last Admin: 06/12/20 10:21 Dose: 40 mg Documented by: Furosemide (Lasix 40 Mg) 40 mg PO DAILY [facility] Stop: 07/12/20 09:59 Last Admin: 06/12/20 10:21 Dose: 40 mg Documented by: Sodium Chloride (Sodium Chloride 0.9% 500 Ml) 500 mls @ 50 mls/hr IV .Q10H [facility] Stop: 06/12/20 13:14 Last Admin: 06/12/20 03:16 Dose: 50 mls/hr Documented by: Indomethacin (Indocin 25 Mg) 25 mg PO TIDPRN PRN PRN Reason: PAIN Stop: 07/12/20 09:05 Levothyroxine Sodium (Synthroid 50 Mcg) 50 mcg PO DAILY [facility] Stop: 07/12/20 09:59 Last Admin: 06/12/20 10:21 Dose: 50 mcg Documented by: Morphine Sulfate (Morphine Sulfate 2 Mg Inj) 2 mg IV Q4H PRN PRN PRN Reason: PAIN Stop: 06/17/20 00:13 Nitroglycerin (Nitrostat 0.4 Mg Tablet) 0.4 mg SL UD PRN Stop: 07/12/20 12:19 Ondansetron HCl (Zofran 4 Mg/2 Ml Vial) 4 mg IV Q6H PRN PRN PRN Reason: NAUSEA/VOMITING Stop: 07/12/20 00:13 Ondansetron HCl (Zofran Odt 4 Mg) 4 mg PO Q8HPRN PRN PRN Reason: NAUSEA Stop: 07/12/20 09:11 Pantoprazole Sodium (Protonix 40 Mg Iv) 40 mg IV Q24H10 [facility] Stop: 07/12/20 09:59 Last Admin: 06/12/20 10:21 Dose: 40 mg Documented by: Potassium Chloride (Klor Con 10 Meq) 20 meq PO QID [facility] Stop: 07/12/20 09:59 Last Admin: 06/12/20 12:45 Dose: 20 meq Documented by: Triamterene/Hydrochlorothiazide (Maxzide-25mg Tablet) 1 tab PO BID DIURETIC [facility] Stop: 07/12/20 09:59 Last Admin: 06/12/20 10:21 Dose: 1 tab Documented by: Intake & Output 06/12/20 06/13/20 11:59 11:59 Intake Total 940 Balance 940 Weight 52.4 kg Orders 06/12/20 03:15 NaCl 0.9% 500 ml [Sodium Chloride 0.9% 500 ML] 500 ml IV 50 mls/hr 06/12/20 04:11 Pulse Oximetry .spot check Respiratory Therapy Assessment DAILY 06/12/20 09:06 Allopurinol 100 mg [Zyloprim 100 mg] 100 mg PO BIDPRN PRN Hydrocodone /APAP 7.5/325 mg [[place] 7.5/325 mg Tab] 1 tab PO Q6HPRN PRN Indomethacin 25 mg [Indocin 25 MG] 25 mg PO TIDPRN PRN 06/12/20 09:12 Ondansetron ODT 4 MG [Zofran Odt 4 mg] 4 mg PO Q8HPRN PRN 06/12/20 10:00 Citalopram Hydrobromide 20 mg* [ceLEXa 20 MG] 40 mg PO DAILY Furosemide 40 mg [Lasix 40 MG] 40 mg PO DAILY Hctz/Triamteren 37.5 mg/25 mg* [Maxzide-25MG Tablet] 1 tab PO BID DIURETIC Levothyroxine Sodium 50 Mcg [Synthroid 50 Mcg] 50 mcg PO DAILY Potassium Chloride 10 Meq Tab* [Klor Con 10 MEQ] 20 meq PO QID 06/12/20 13:00 Albuterol 2.5 mg/3 ml Neb [Proventil 2.5 mg/3 ml Neb] 2.5 mg IH Q6HRT Lab Tests 06/11/20 06/11/20 06/11/20 22:02 22:02 22:02 WBC 11.4 H RBC 5.09 Hgb 13.7 Hct 42.3 MCV 83.1 MCH 26.9 MCHC 32.4 RDW 16.0 H Plt Count 436 MPV 8.5 Gran % 72.1 H Eos # (Auto) 0.09 Absolute Lymphs (auto) 2.45 Absolute Monos (auto) 0.63 Lymphocytes % 21.5 L Monocytes % 5.5 Eosinophils % 0.8 Basophils % 0.1 Absolute Granulocytes 8.19 H Basophils # 0.01 Sodium 136 L Potassium 2.7 L* Chloride 93 L Carbon Dioxide 32 H Anion Gap 13.2 BUN 19 H Creatinine 1.23 H Estimated GFR 45.1 Glucose 167 H Calcium 10.0 Total Bilirubin 0.80 AST 49 H ALT 19 Alkaline Phosphatase 111 Troponin I < 0.012 Serum Total Protein 7.2 Albumin 4.3 Triglycerides Cholesterol LDL Cholesterol HDL Cholesterol Heart Disease Risk Ratio Amylase 61 Lipase 126 Urine Color Urine Appearance Urine pH Ur Specific [place] Urine Protein Urine Ketones Urine Blood Urine Nitrite Urine Bilirubin Urine Urobilinogen Ur Leukocyte Esterase Urine WBC (Auto) Urine RBC (Auto) U Hyaline Cast (Auto) U Epithel Cells (Auto) Urine Bacteria (Auto) Urine Culture Reflexed Urine Glucose 06/11/20 06/12/20 06/12/20 22:20 01:03 04:28 WBC RBC Hgb Hct MCV MCH MCHC RDW Plt Count MPV Gran % Eos # (Auto) Absolute Lymphs (auto) Absolute Monos (auto) Lymphocytes % Monocytes % Eosinophils % Basophils % Absolute Granulocytes Basophils # Sodium Potassium Chloride Carbon Dioxide Anion Gap BUN Creatinine Estimated GFR Glucose Calcium Total Bilirubin AST ALT Alkaline Phosphatase Troponin I < 0.012 < 0.012 Serum Total Protein Albumin Triglycerides Cholesterol LDL Cholesterol HDL Cholesterol Heart Disease Risk Ratio Amylase Lipase Urine Color YELLOW Urine Appearance CLEAR Urine pH 7.0 Ur Specific [place] 1.011 Urine Protein NEGATIVE Urine Ketones NEGATIVE Urine Blood NEGATIVE Urine Nitrite NEGATIVE Urine Bilirubin NEGATIVE Urine Urobilinogen NEGATIVE Ur Leukocyte Esterase TRACE Urine WBC (Auto) 3-5 Urine RBC (Auto) NONE U Hyaline Cast (Auto) 6-10 U Epithel Cells (Auto) NONE Urine Bacteria (Auto) NONE Urine Culture Reflexed NO Urine Glucose NEGATIVE 06/12/20 06/12/20 06/12/20 04:28 04:28 07:00 WBC 6.7 RBC 4.23 Hgb 11.4 L Hct 36.4 MCV 86.1 MCH 27.0 MCHC 31.3 L RDW 16.0 H Plt Count 333 MPV 8.5 Gran % 70.0 H Eos # (Auto) 0.08 Absolute Lymphs (auto) 1.40 Absolute Monos (auto) 0.52 Lymphocytes % 20.8 L Monocytes % 7.7 Eosinophils % 1.2 Basophils % 0.3 Absolute Granulocytes 4.72 Basophils # 0.02 Sodium 136 L Potassium 4.4 D Chloride 101 Carbon Dioxide 32 H Anion Gap 8.3 BUN 17 Creatinine 1.11 H Estimated GFR 50.8 Glucose 134 H Calcium 9.1 Total Bilirubin 1.30 AST 741 H ALT 339 H Alkaline Phosphatase 168 H Troponin I < 0.012 Serum Total Protein 5.5 L Albumin 3.3 L Triglycerides Pending Cholesterol Pending LDL Cholesterol Pending HDL Cholesterol Pending Heart Disease Risk Ratio Pending Amylase Lipase Urine Color Urine Appearance Urine pH Ur Specific [place] Urine Protein Urine Ketones Urine Blood Urine Nitrite Urine Bilirubin Urine Urobilinogen Ur Leukocyte Esterase Urine WBC (Auto) Urine RBC (Auto) U Hyaline Cast (Auto) U Epithel Cells (Auto) Urine Bacteria (Auto) Urine Culture Reflexed Urine Glucose 06/12/20 10:57 WBC RBC Hgb Hct MCV MCH MCHC RDW Plt Count MPV Gran % Eos # (Auto) Absolute Lymphs (auto) Absolute Monos (auto) Lymphocytes % Monocytes % Eosinophils % Basophils % Absolute Granulocytes Basophils # Sodium Potassium Chloride Carbon Dioxide Anion Gap BUN Creatinine Estimated GFR Glucose Calcium Total Bilirubin AST ALT Alkaline Phosphatase Troponin I < 0.012 Serum Total Protein Albumin Triglycerides Cholesterol LDL Cholesterol HDL Cholesterol Heart Disease Risk Ratio Amylase Lipase Urine Color Urine Appearance Urine pH Ur Specific [place] Urine Protein Urine Ketones Urine Blood Urine Nitrite Urine Bilirubin Urine Urobilinogen Ur Leukocyte Esterase Urine WBC (Auto) Urine RBC (Auto) U Hyaline Cast (Auto) U Epithel Cells (Auto) Urine Bacteria (Auto) Urine Culture Reflexed Urine Glucose - Vitals & Intake/Output Vital Signs: Vital Signs Temperature 97.6 F 06/12/20 12:00 Pulse Rate 57 L 06/12/20 12:00 Respiratory Rate 16 06/12/20 12:00 Blood Pressure 120/58 06/12/20 12:00 O2 Sat by Pulse Oximetry 100 06/12/20 12:00 Intake & Output: Intake & Output 06/10/20 06/11/20 06/12/20 06/13/20 11:59 11:59 11:59 11:59 Intake Total 940 Balance 940 Weight 52.4 kg - Lab Result Diagrams: 06/12/20 04:28 06/12/20 04:28 Lab Results-Last 24 Hrs: Lab Results-Last 24 Hours 06/11/20 06/11/2006/11/21 Range/Units 22:02 22:02 22:02 WBC 11.4 H (4.0-10.5) K/mm3 RBC 5.09 (4.1-5.4) M/mm3 Hgb 13.7 (12.0-16.0) gm/dl Hct 42.3 (35-47) % MCV 83.1 (78-100) fl MCH 26.9 (26-32) pg MCHC 32.4 (32-36) g/dl RDW 16.0 H (11.5-14.0) % Plt Count 436 (150-450) K/mm3 MPV 8.5 (7.5-11.0) fl Gran % 72.1 H (36.0-66.0) % Eos # (Auto) 0.09 (0-0.5) Absolute Lymphs (auto) 2.45 (1.0-4.6) Absolute Monos (auto) 0.63 (0.0-1.3) Lymphocytes % 21.5 L (24.0-44.0) % Monocytes % 5.5 (0.0-12.0) % Eosinophils % 0.8 (0.00-5.0) % Basophils % 0.1 (0.0-0.4) % Absolute Granulocytes 8.19 H (1.4-6.9) Basophils # 0.01 (0-0.4) Sodium 136 L (137-145) mmol/L Potassium 2.7 L* (3.5-5.1) mmol/L Chloride 93 L (98-107) mmol/L Carbon Dioxide 32 H (22-30) mmol/L Anion Gap 13.2 (5-15) MEQ/L BUN 19 H (7-17) mg/dL Creatinine 1.23 H (0.52-1.04) mg/dL Estimated GFR 45.1 ML/MIN Glucose 167 H (74-106) mg/dL Calcium 10.0 (8.4-10.2) mg/dL Total Bilirubin 0.80 (0.2-1.3) mg/dL AST 49 H (14-36) U/L ALT 19 (0-35) U/L Alkaline Phosphatase 111 (38-126) U/L Troponin I < 0.012 (0.000-0.034) ng/mL Serum Total Protein 7.2 (6.3-8.2) g/dL Albumin 4.3 (3.5-5.0) g/dL Triglycerides Cholesterol LDL Cholesterol HDL Cholesterol Heart Disease Risk Ratio Amylase 61 (30-110) U/L Lipase 126 (23-300) U/L Urine Color (YELLOW) Urine Appearance (CLEAR) Urine pH (5-6) Ur Specific [place] (1.005-1.025) Urine Protein (Negative) Urine Ketones (NEGATIVE) Urine Blood (0-5) [place]/ul Urine Nitrite (NEGATIVE) Urine Bilirubin (NEGATIVE) Urine Urobilinogen (0-1) mg/dL Ur Leukocyte Esterase (NEGATIVE) Urine WBC (Auto) (0-5) /HPF Urine RBC (Auto) (0-2) /HPF U Hyaline Cast (Auto) (0-2) /LPF U Epithel Cells (Auto) (FEW) /HPF Urine Bacteria (Auto) (NEGATIVE) /HPF Urine Culture Reflexed (NO) Urine Glucose (NEGATIVE) mg/dL 06/11/20 06/12/20 06/12/20 Range/Units 22:20 01:03 04:28 WBC (4.0-10.5) K/mm3 RBC (4.1-5.4) M/mm3 Hgb (12.0-16.0) gm/dl Hct (35-47) % MCV (78-100) fl MCH (26-32) pg MCHC (32-36) g/dl RDW (11.5-14.0) % Plt Count (150-450) K/mm3 MPV (7.5-11.0) fl Gran % (36.0-66.0) % Eos # (Auto) (0-0.5) Absolute Lymphs (auto) (1.0-4.6) Absolute Monos (auto) (0.0-1.3) Lymphocytes % (24.0-44.0) % Monocytes % (0.0-12.0) % Eosinophils % (0.00-5.0) % Basophils % (0.0-0.4) % Absolute Granulocytes (1.4-6.9) Basophils # (0-0.4) Sodium (137-145) mmol/L Potassium (3.5-5.1) mmol/L Chloride (98-107) mmol/L Carbon Dioxide (22-30) mmol/L Anion Gap (5-15) MEQ/L BUN (7-17) mg/dL Creatinine (0.52-1.04) mg/dL Estimated GFR ML/MIN Glucose (74-106) mg/dL Calcium (8.4-10.2) mg/dL Total Bilirubin (0.2-1.3) mg/dL AST (14-36) U/L ALT (0-35) U/L Alkaline Phosphatase (38-126) U/L Troponin I < 0.012 < 0.012 (0.000-0.034) ng/mL Serum Total Protein (6.3-8.2) g/dL Albumin (3.5-5.0) g/dL Triglycerides Cholesterol LDL Cholesterol HDL Cholesterol Heart Disease Risk Ratio Amylase (30-110) U/L Lipase (23-300) U/L Urine Color YELLOW (YELLOW) Urine Appearance CLEAR (CLEAR) Urine pH 7.0 (5-6) Ur Specific [place] 1.011 (1.005-1.025) Urine Protein NEGATIVE (Negative) Urine Ketones NEGATIVE (NEGATIVE) Urine Blood NEGATIVE (0-5) [place]/ul Urine Nitrite NEGATIVE (NEGATIVE) Urine Bilirubin NEGATIVE (NEGATIVE) Urine Urobilinogen NEGATIVE (0-1) mg/dL Ur Leukocyte Esterase TRACE (NEGATIVE) Urine WBC (Auto) 3-5 (0-5) /HPF Urine RBC (Auto) NONE (0-2) /HPF U Hyaline Cast (Auto) 6-10 (0-2) /LPF U Epithel Cells (Auto) NONE (FEW) /HPF Urine Bacteria (Auto) NONE (NEGATIVE) /HPF Urine Culture Reflexed NO (NO) Urine Glucose NEGATIVE (NEGATIVE) mg/dL 06/12/20 06/12/20 06/12/20 Range/Units 04:28 04:28 07:00 WBC 6.7 (4.0-10.5) K/mm3 RBC 4.23 (4.1-5.4) M/mm3 Hgb 11.4 L (12.0-16.0) gm/dl Hct 36.4 (35-47) % MCV 86.1 (78-100) fl MCH 27.0 (26-32) pg MCHC 31.3 L (32-36) g/dl RDW 16.0 H (11.5-14.0) % Plt Count 333 (150-450) K/mm3 MPV 8.5 (7.5-11.0) fl Gran % 70.0 H (36.0-66.0) % Eos # (Auto) 0.08 (0-0.5) Absolute Lymphs (auto) 1.40 (1.0-4.6) Absolute Monos (auto) 0.52 (0.0-1.3) Lymphocytes % 20.8 L (24.0-44.0) % Monocytes % 7.7 (0.0-12.0) % Eosinophils % 1.2 (0.00-5.0) % Basophils % 0.3 (0.0-0.4) % Absolute Granulocytes 4.72 (1.4-6.9) Basophils # 0.02 (0-0.4) Sodium 136 L (137-145) mmol/L Potassium 4.4 D (3.5-5.1) mmol/L Chloride 101 (98-107) mmol/L Carbon Dioxide 32 H (22-30) mmol/L Anion Gap 8.3 (5-15) MEQ/L BUN 17 (7-17) mg/dL Creatinine 1.11 H (0.52-1.04) mg/dL Estimated GFR 50.8 ML/MIN Glucose 134 H (74-106) mg/dL Calcium 9.1 (8.4-10.2) mg/dL Total Bilirubin 1.30 (0.2-1.3) mg/dL AST 741 H (14-36) U/L ALT 339 H (0-35) U/L Alkaline Phosphatase 168 H (38-126) U/L Troponin I < 0.012 (0.000-0.034) ng/mL Serum Total Protein 5.5 L (6.3-8.2) g/dL Albumin 3.3 L (3.5-5.0) g/dL Triglycerides Pending Cholesterol Pending LDL Cholesterol Pending HDL Cholesterol Pending Heart Disease Risk Ratio Pending Amylase (30-110) U/L Lipase (23-300) U/L Urine Color (YELLOW) Urine Appearance (CLEAR) Urine pH (5-6) Ur Specific [place] (1.005-1.025) Urine Protein (Negative) Urine Ketones (NEGATIVE) Urine Blood (0-5) [place]/ul Urine Nitrite (NEGATIVE) Urine Bilirubin (NEGATIVE) Urine Urobilinogen (0-1) mg/dL Ur Leukocyte Esterase (NEGATIVE) Urine WBC (Auto) (0-5) /HPF Urine RBC (Auto) (0-2) /HPF U Hyaline Cast (Auto) (0-2) /LPF U Epithel Cells (Auto) (FEW) /HPF Urine Bacteria (Auto) (NEGATIVE) /HPF Urine Culture Reflexed (NO) Urine Glucose (NEGATIVE) mg/dL 06/12/20 Range/Units 10:57 WBC (4.0-10.5) K/mm3 RBC (4.1-5.4) M/mm3 Hgb (12.0-16.0) gm/dl Hct (35-47) % MCV (78-100) fl MCH (26-32) pg MCHC (32-36) g/dl RDW (11.5-14.0) % Plt Count (150-450) K/mm3 MPV (7.5-11.0) fl Gran % (36.0-66.0) % Eos # (Auto) (0-0.5) Absolute Lymphs (auto) (1.0-4.6) Absolute Monos (auto) (0.0-1.3) Lymphocytes % (24.0-44.0) % Monocytes % (0.0-12.0) % Eosinophils % (0.00-5.0) % Basophils % (0.0-0.4) % Absolute Granulocytes (1.4-6.9) Basophils # (0-0.4) Sodium (137-145) mmol/L Potassium (3.5-5.1) mmol/L Chloride (98-107) mmol/L Carbon Dioxide (22-30) mmol/L Anion Gap (5-15) MEQ/L BUN (7-17) mg/dL Creatinine (0.52-1.04) mg/dL Estimated GFR ML/MIN Glucose (74-106) mg/dL Calcium (8.4-10.2) mg/dL Total Bilirubin (0.2-1.3) mg/dL AST (14-36) U/L ALT (0-35) U/L Alkaline Phosphatase (38-126) U/L Troponin I < 0.012 (0.000-0.034) ng/mL Serum Total Protein (6.3-8.2) g/dL Albumin (3.5-5.0) g/dL Triglycerides Cholesterol LDL Cholesterol HDL Cholesterol Heart Disease Risk Ratio Amylase (30-110) U/L Lipase (23-300) U/L Urine Color (YELLOW) Urine Appearance (CLEAR) Urine pH (5-6) Ur Specific [place] (1.005-1.025) Urine Protein (Negative) Urine Ketones (NEGATIVE) Urine Blood (0-5) [place]/ul Urine Nitrite (NEGATIVE) Urine Bilirubin (NEGATIVE) Urine Urobilinogen (0-1) mg/dL Ur Leukocyte Esterase (NEGATIVE) Urine WBC (Auto) (0-5) /HPF Urine RBC (Auto) (0-2) /HPF U Hyaline Cast (Auto) (0-2) /LPF U Epithel Cells (Auto) (FEW) /HPF Urine Bacteria (Auto) (NEGATIVE) /HPF Urine Culture Reflexed (NO) Urine Glucose (NEGATIVE) mg/dL - Radiology Exams Ordered Rad Exams-Entire Visit: Radiology Procedures Category Date Time Status ABDOMEN AND PELVIS W/0 CONTRAS [CT] Stat Exams 06/11/20 21:52 Completed CHEST WITHOUT CONTRAST [CT] Stat Exams 06/11/20 21:53 Completed - Procedures and Test Procedures and Tests throughout Hospitalization: Therapy Orders & Screens 06/12/20 00:14 Oxygen Nasal Cannula 2 lpm Comment: 06/12/20 04:11 Respiratory Therapy Assessment DAILY Comment: Diagnosis: chest pain rule out MO 06/12/20 12:10 EKG ROUTINE Comment: Diagnosis: chest pain rule out MO Discharge Exam General Appearance: no apparent distress, alert Neurologic Exam: alert, oriented x 3, cooperative, normal mood/affect, nml cerebellar function, sensation nml, No motor deficits Eye Exam: PERRL, EOMI, eyes nml inspection Ears, Nose, Throat Exam: normal ENT inspection, pharynx normal, moist mucous membranes Neck Exam: normal inspection, non-tender, supple, full range of motion Respiratory Exam: normal breath sounds, lungs clear, No respiratory distress Cardiovascular Exam: regular rate/rhythm, normal heart sounds Gastrointestinal/Abdomen Exam: soft, No tenderness, No mass Pelvic Exam: deferred Rectal Exam: deferred Back Exam: normal inspection, normal range of motion, No CVA tenderness, No vertebral tenderness Extremity Exam: normal inspection, normal range of motion Skin Exam: normal color, warm, dry Final Diagnosis/Problem List - Final Discharge Diagnosis/Problem (1) Chest pain, rule out acute myocardial infarction Current Visit: Yes Status: Ruled-out Code(s): R07.9 - CHEST PAIN, UNSPECIFIED (2) Hypokalemia Current Visit: Yes Status: Resolved Code(s): E87.6 - HYPOKALEMIA (3) 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 Code(s): K86.2 - CYST OF PANCREAS - Discharge Discharge Date: 06/12/20 Disposition: Home, Self-Care Condition: Stable Prescriptions: No Action Citalopram Hydrobromide 20 mg* [ceLEXa 20 MG] 40 mg PO DAILY Levothyroxine Sodium 50 Mcg [Synthroid 50 Mcg] 50 mcg PO DAILY Potassium Chloride 20 Meq Tab [Potassium Chloride 20 MEQ TABLET] 20 meq PO QID Albuterol 2.5 mg/3 ml Neb [Proventil 2.5 mg/3 ml Neb] 1 neb IH Q6H Furosemide [Lasix] 40 mg PO DAILY Allopurinol [Zyloprim] 100 mg PO BIDPRN PRN PRN Reason: JOINT PAIN Hydrocodone Bit/Acetaminophen [[place] 7.5-325 Tablet] 1 each PO Q6HPRN PRN PRN Reason: Pain Triamterene/Hydrochlorothiazid [Dyazide 37.5-25 Capsule] 1 tab PO BID Indomethacin 25 mg [Indocin 25 MG] 25 mg PO TIDPRN PRN PRN Reason: Pain Ondansetron HCl [Zofran] 4 mg PO Q8HPRN PRN PRN Reason: Nausea Follow up with: SHERRIE LEWIS [COURTESY STAFF] - JACKSON REY MD [Primary Care Provider] - 06/19/20 10:45 am ([facility])
[2020-06-12 13:15] LABS: ALBUMIN 3.7 g/dL (3.5-5.0); Direct Bilirubin 0.5 mg/dL (0.0-0.4); Total Protein 6.1 g/dL (6.3-8.2)
[2020-06-12 15:04] LABS: Risk Ratio 6.9
--- NOTE | 2020-06-12 15:07 | CONS ---
NOTE: This report was dictated and transcribed at [facility]. This is a tele-cardio consult. The patient currently is located in [facility]. CHIEF COMPLAINT: This is a 74-year-old white female who has undergone surgery for pancreatic tumor at [facility] in the month of January 2020. She was admitted in [facility] because of pain in the epigastric area of the abdomen radiating into the left upper chest in the left inframammary area. Pain is described as a pressure-like sensation. It is off and on. There is no pain in the neck or the jaw or the upper arms. The patient states that she had a similar kind of pain when she had pancreatitis, which occurred after surgery on the pancreas. Initially, she did not have any pancreatitis. An EKG was performed after the patient was admitted. Electrocardiogram demonstrating presence of normal sinus rhythm with nonspecific T changes in the form of slightly inverted T-wave in V2, in V3, and mild ST-segment depression in leads V4 and V5, and also in lead V6. Cardiac enzymes were obtained and they were all negative. PAST MEDICAL HISTORY: This patient's past medical history is negative for diabetes, hypertension, there is no prior myocardial infarction or stroke. 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 SOCIAL HISTORY: She does not smoke. There is no history of alcohol abuse or drug abuse. SURGICAL HISTORY: The patient had cholecystectomy in the past. CURRENT MEDICATIONS: Include Protonix 40 mg IV in the hospital. She is getting Zofran p.r.n. nausea, is getting fentanyl p.r.n. for pain and morphine for pain on a p.r.n. basis. VITAL SIGNS: Stable. PHYSICAL EXAM: VITAL SIGNS: Stable. LABS: Her laboratory workup demonstrates the following: On the of this month, that this today, her white count is 6.7, hemoglobin is 11.4, hematocrit 36.4. Troponin I is less than 0.102. BUN is 19, creatinine is 1.23. Sodium is 136, potassium is low at 2.7, chloride 93. Amylase and lipase normal. CBC, white count was 5.[address] of the abdomen was performed, demonstrating cystic mass in the tail of the pancreas measuring 3.4 cm in diameter, which is new since in April 28, 2011. There is increased size of the small hiatal hernia. There is evidence of colonic diverticulosis without evidence of any acute diverticulitis. IMPRESSION: 1. Chest pain, possibly secondary to gastroesophageal reflux disease. Angina pectoris cannot be completely ruled out. The patient has nonspecific ST-segment change on EKG. 2. History of pancreatitis, history of recent removal of pancreatic tumor in the month of March at [facility] at [facility]. TREATMENT PLAN: The patient will be advised to continue current medical therapy at this time. She had a stress test and echocardiogram, according to her, at our office. This report will be reviewed before further advice will be given. From the cardiac standpoint, the patient could be released to go home when stable from the standpoint of the abdominal pain, and then I will see her in the office and further treatment will be recommended at that time. Thank you for the consult.
== END 2020-06-12 13:45 | disposition home or self-care (01) ==
LOC: ED 21:40 → MED SURG 06-12 00:06
PROVIDERS: ADMIT General Practice; ATTEND General Practice
DX: R07.9 Chest pain, unspecified (principal); E87.6 Hypokalemia; K86.2 Cyst of pancreas; Z79.899 Other long term (current) drug therapy; E05.90 Thyrotoxicosis, unspecified without thyrotoxic crisis or storm; R10.11 Right upper quadrant pain; R10.13 Epigastric pain; M54.9 Dorsalgia, unspecified; K44.9 Diaphragmatic hernia without obstruction or gangrene; K57.30 Diverticulosis of large intestine without perforation or abscess without bleeding
CPT/HCPCS: 36000; 36415; 71250; 74176; 80053; 80061; 80076; 81001; 82150; 83690; 83721; 84484; 85025; 93005; 93268; 94760; 96365; 96366; 96368; 96374; 96375; 99285; 99291; G0378; J2270; J2405; J3010; J3475; J3480; Q3014; A9270-GY

== ENCOUNTER 2021-12-26 12:10 | Emergency (ER) | payer MEDICARE, OTHER ==
[2021-12-26 12:18] VITALS: O2SAT 98
--- NOTE | 2021-12-26 12:24 | ERPHSYRPT ---
- History of Present Illness Time Seen by Provider: 12/26/21 14:18 Patient Subjective Stated Complaint: Pt states "My left leg hurts so bad. The pain goes from my knee to my thigh." Triage Nursing Assessment: Pt presented alert and oriented X 3, skin pwd.pt ambualtes with a limp. PT rubbing her left thigh. Physician History: Patient is 75-year-old female with significant past medical history of pancreatic pseudocyst, history of thrombocytosis etiology unclear, hypertension started having left thigh pain and left knee pain since yesterday. Patient was on hydroxyurea for her thrombocytosis which recently dose was decreased to 1 tablet a day. Her platelet count has recently risen up to 850,000. At one point of time her platelet count was more than 1.2 million but after hydroxyurea treatment it did came down to 450 but now it has gone up. She denies any other symptoms including any stroke symptoms or difficulty in speech or any bleeding from any site. Timing/Duration: today Severity: moderate Associated Symptoms: denies symptoms Allergies/Adverse Reactions: codeine [Codeine] Allergy (Severe, Verified 06/11/20 21:54) Fainting Penicillins Allergy (Severe, Verified 06/11/20 21:54) Swelling shellfish derived Allergy (Intermediate, Verified 06/11/20 21:54) Difficulty Breathing Home Medications: Citalopram Hydrobromide 20 mg* [ceLEXa 20 MG] 40 mg PO DAILY 07/12/12 [History] Levothyroxine Sodium 50 Mcg [Synthroid 50 Mcg] 50 mcg PO DAILY 07/12/12 [History] Potassium Chloride 20 Meq Tab [Potassium Chloride 20 MEQ TABLET] 20 meq PO QID 07/12/12 [History] Albuterol 2.5 mg/3 ml Neb [Proventil 2.5 mg/3 ml Neb] 1 neb IH Q6H 06/07/13 [History] Furosemide [Lasix] 40 mg PO DAILY 06/07/13 [History] allopurinoL [Zyloprim] 100 mg PO BIDPRN PRN 01/17/14 [History] Hydrocodone/Acetaminophen [[place] 7.5-325 Tablet] 1 each PO Q6HPRN PRN 03/20/20 [History] Indomethacin 25 mg [Indocin 25 MG] 25 mg PO TIDPRN PRN 03/20/20 [History] Triamterene/Hydrochlorothiazid [Dyazide 37.5-25 Capsule] 1 tab PO BID 03/20/20 [History] ondansetron HCL [Zofran] 4 mg PO Q8HPRN PRN 03/20/20 [History] Hx Tetanus, Diphtheria Vaccination/Date Given: Yes Hx Influenza Vaccination/Date Given: No Hx Pneumococcal Vaccination/Date Given: Yes Immunizations Up to Date: Yes Travel Risk - International Travel Have you traveled outside of the country in past 3 weeks: No - Coronavirus Screening Are you exhibiting any of the following symptoms?: No Close contact with a COVID-19 positive Pt in past 14-21 Days: No - Vaccine Status Have you recieved a Covid-19 vaccination: No - Review of Systems Constitutional: No Fever, No Chills Eyes: No Symptoms Ears, Nose, & Throat: No Symptoms Respiratory: No Cough, No Dyspnea Cardiac: No Chest Pain, No Edema, No Syncope Abdominal/Gastrointestinal: No Abdominal Pain, No Nausea, No Vomiting, No Diarrhea Genitourinary Symptoms: No Dysuria Musculoskeletal: Other (left thigh and knee pain), No Back Pain, No Neck Pain Skin: No Rash Neurological: No Dizziness, No Focal Weakness, No Sensory Changes Psychological: No Symptoms Endocrine: No Symptoms All Other Systems: Reviewed and Negative - Past Medical History Pertinent Past Medical History: Yes Neurological History: No Pertinent History ENT History: Cataracts, Other Cardiac History: No Pertinent History Respiratory History: No Pertinent History Endocrine Medical History: Hyperthyroidism Musculoskeletal History: No Pertinent History GI Medical History: Esophageal Disorder History: No Pertinent History Psycho-Social History: No Pertinent History Female Reproductive Disorders: Fibroids Other Medical History: skin ca. pancreatitic tumor - Past Surgical History Past Surgical History: Yes Neuro Surgical History: No Pertinent History Cardiac: No Pertinent History Respiratory: No Pertinent History Gastrointestinal: Cholecystectomy, Exploratory Laparoscopy, Hernia Repair Genitourinary: No Pertinent History Musculoskeletal: No Pertinent History Female Surgical History: Hysterectomy Other Surgical History: Tumor removed from Pancreas 03/18. Esophogeal Dilatation - Social History Smoking Status: Never smoker Exposure to second hand smoke: No Drug Use: none Patient Lives Alone: No Significant Family History: no pertinent family hx - Nursing Vital Signs Nursing Vital Signs: Initial Vital Signs Temperature 98.2 F 07/30/22 12:14 Pulse Rate 99 H 12/26/21 12:14 Respiratory Rate 20 12/26/21 12:14 Blood Pressure 127/81 12/26/21 12:14 O2 Sat by Pulse Oximetry 98 12/26/21 12:14 Pain Scale Pain Intensity 8 - Physical Exam General Appearance: no apparent distress, alert Eye Exam: PERRL/EOMI, eyes nml inspection Ears, Nose, Throat Exam: normal ENT inspection, TMs normal, pharynx normal, moist mucous membranes Neck Exam: normal inspection, non-tender, supple, full range of motion Respiratory Exam: normal breath sounds, lungs clear, No respiratory distress Cardiovascular Exam: regular rate/rhythm, normal heart sounds, normal peripheral pulses Gastrointestinal/Abdomen Exam: soft, normal bowel sounds, No tenderness, No mass Back Exam: normal inspection, normal range of motion, No CVA tenderness, No vertebral tenderness Extremity Exam: normal inspection, normal range of motion, pelvis stable, No sravanthi's sign, No inflammation, No limited range of motion, No pedal edema, No tenderness Neurologic Exam: alert, oriented x 3, cooperative, normal mood/affect, nml cerebellar function, nml station & gait, sensation nml, No motor deficits Skin Exam: normal color, warm, dry, No rash Lymphatic Exam: No adenopathy SpO2: 98 - Course Nursing assessment & vital signs reviewed: Yes Ordered Tests: Active Orders 24 hr Category Date Time Status Ultrasound Unilateral Extremities [VENOUS UNILAT/ Exams 12/26/21 13:10 Taken LIMITED EXTREMIT] [US] Stat AMYLASE Stat Lab 12/26/21 12:34 Completed CBC W DIFF Stat Lab 12/26/21 12:34 Completed CK-Creatinine Phosphokinase Stat Lab 12/26/21 12:34 Completed CMP Stat Lab 12/26/21 12:34 Completed D-DIMER QUANTITATIVE Stat Lab 12/26/21 12:34 Completed Erythrocyte Sedimentation Rate Stat Lab 12/26/21 12:34 Completed LIPASE Stat Lab 12/26/21 12:34 Completed MAGNESIUM Stat Lab 12/26/21 12:34 Completed NT PRO BNP Stat Lab 12/26/21 12:34 Completed Medication Summary Discontinued Medications Generic Name Dose Route Start Last Admin Trade Name Freq PRN Reason Stop Dose Admin Ketorolac Tromethamine 60 mg 12/26/21 13:37 12/26/21 13:51 Ketorolac Tromethamine 30 Mg/Ml Inj IM 12/26/21 13:38 60 mg STAT ONE Administration Ketorolac Tromethamine Confirm 12/26/21 13:51 Ketorolac Tromethamine 30 Mg/Ml Inj Administered 12/26/21 13:52 Dose 60 mg .ROUTE .K-MED ONE Lab/Rad Data: Laboratory Result Diagrams 12/26/21 12:34 12/26/21 12:34 Laboratory Results 12/26/21 12/26/21 12/26/21 Range/Units 12:34 12:34 12:34 WBC 13.2 H (4.0-10.5) x10^3/uL RBC 3.97 L (4.1-5.4) x10^6/uL Hgb 11.6 L (12.0-16.0) g/dL Hct 35.6 (35-47) % MCV 89.7 (78-100) fL MCH 29.2 (26-32) pg MCHC 32.6 (32-36) g/dL RDW 31.8 H (11.5-14.0) % Plt Count 804 H (150-450) x10^3/uL MPV 9.1 (7.5-11.0) fL Gran % 69.9 H (36.0-66.0) % Immature Gran % (Auto) 0.8 H (0.00-0.4) % Nucleat RBC Rel Count 1.0 H (0.00-0.1) % Eos # (Auto) 0.12 (0-0.5) x10^3/uL Immature Gran # (Auto) 0.11 H (0.00-0.03) x10^3u/L Absolute Lymphs (auto) 2.70 (1.0-4.6) x10^3/uL Absolute Monos (auto) 0.97 (0.0-1.3) x10^3/uL Absolute Nucleated RBC 0.13 H (0.00-0.01) x10^3u/L Lymphocytes % 20.4 L (24.0-44.0) % Monocytes % 7.3 (0.0-12.0) % Eosinophils % 0.9 (0.00-5.0) % Basophils % 0.7 (0.0-0.4) % Absolute Granulocytes 9.23 H (1.4-6.9) x10^3/uL Basophils # 0.09 (0-0.4) x10^3/uL ESR 69 H (0-20) mm/hr D-Dimer 1.00 H* (0.0-0.50) mg/L Sodium 135 L (137-145) mmol/L Potassium 3.4 L (3.5-5.1) mmol/L Chloride 93 L (98-107) mmol/L Carbon Dioxide 30 (22-30) mmol/L Anion Gap 14.9 (5-15) MEQ/L BUN 33 H (7-17) mg/dL Creatinine 1.43 H (0.52-1.04) mg/dL Estimated GFR 37.8 ML/MIN Glucose 262 H (74-106) mg/dL Calcium 10.2 (8.4-10.2) mg/dL Magnesium 2.0 (1.6-2.3) mg/dL Total Bilirubin 0.80 (0.2-1.3) mg/dL AST 15 (14-36) U/L ALT 11 (0-35) U/L Alkaline Phosphatase 157 H (38-126) U/L Creatine Kinase < 20 L (30-135) U/L NT-Pro-B Natriuret Pep 490 (0-1800) pg/mL Serum Total Protein 7.4 (6.3-8.2) g/dL Albumin 4.2 (3.5-5.0) g/dL Amylase 63 (30-110) U/L Lipase 26 (23-300) U/L - Progress Progress: improved, pain not gone completely Counseled pt/family regarding: lab results, diagnosis, need for follow-up, rad results (Venous duplex negative for DVT) - Departure Departure Disposition: Home Clinical Impression: Left thigh pain, Thrombocytopathy, Benign neuroendocrine neoplasm of pancreas Condition: Stable Critical Care Time: Yes Critical Care Time(excluding separately billable procedures): Critical 30-74 mins Referrals: JACKSON REY MD [Primary Care Provider] - Follow up/PCP as directed Additional Instructions: Discharge/Care Plan KORADHA COE was seen on 12/26/21 in the Emergency Room. The patient was counseled regarding Diagnosis,Lab results, Imaging studies, need for follow up and when to return to the Emergency Room. Prescriptions given: Discharge Note I have spoken with the patient and/or caregivers. I have explained the patient's condition, diagnosis and treatment plan based on the information available to me at this time. I have answered the patient's and/or caregiver's questions and addressed any concerns. The patient and/or caregivers have as good understanding of the patient's diagnosis, condition and treatment plan as can be expected at this point. The vital signs have been stable. The patient's condition is stable and appropriate for discharge from the emergency department. The patient will pursue further outpatient evaluation with the primary care p izzy or other designated or consulting physician as outlined in the discharge instructions. The patient and/or caregivers are agreeable to this plan of care and follow-up instructions have been explained in detail. The patient and/or caregivers have received these instruction. The patient/and or caregivers are aware that any significant change in condition or worsening of symptoms should prompt an immediate return to this or the closest emergency department or call 911. RADHA KO was seen on 12/26/21 n the Emergency Room. At that time you were treated for an emergent condition, during your visit Laboratory, Radiology and/or other procedures may have been ordered. It is very important that you follow-up with your Primary Care Physician JACKSON REY within the next 24-48 hours to review your Emergency Room visit and the final results of testing that was ordered. Some test results such as Urine Cultures, Blood Cultures, and other cultures if ordered will not be finalized for 24-48 hours. If you do not have a Primary Care Provider please call the medical records department at [phone] to obtain a copy of your results or you may sign into our patient portal to obtain these results by visiting us @ [email or web address] and completing the following steps: 1. Click on the Patient Portal link 2. Click the Patient Self Enrollment Link to complete the enrollment form and entering your 3. Once the enrollment form is completed you will receive an email with a temporary ID and password at the email address you provided. 4. Next choose a user name and password. Your user name must be at least 4 characters long and your password must be at least 4 characters long. 5. Choose a security question from the list and provide your answer to the question. If you already have signed into the Health Portal you may access your Health Care Information 20/12 by the following steps: 1. Login to our website @ [email or web address] 2. Enter your original user name and password. FAQS The [facility] Health Portal is an online tool that contains your Lab Results, Radiology Reports, Visit History, Discharge Instructions and Health Summary Lab and Radiology Results will not be available for 72 hours on the portal. The Portal is a secure site, passwords are encryted and URLs are re-written so they cannot be copied and pasted. You and authorized family members are the only ones who can access your Portal. Also there is a timeout feature that protects your information if you leave the Portal page open. If you have technical difficulty please use the Contact Us link on the page this will allow you to submit any questions you have regarding the Portal or you may contact the Medical Record Department at [phone]. Prescriptions: Hydrocodone/Acetaminophen [Hydrocodone-Acetamin 5-325 mg] 1 tab PO Q6HPRN PRN #20 tablet MDD 4 PRN Reason: Pain
[2021-12-26 12:50] LABS: Absolute Neutrophil Ct (ANC) 9.23 x10^3/uL (1.4-6.9); Basophil (Absolute #) 0.09 x10^3/uL (0-0.4); Eosinophil % 0.9 % (0.00-5.0); Eosinophil (Absolute #) 0.12 x10^3/uL (0-0.5); Hematocrit 35.6 % (35-47); Hemoglobin 11.6 g/dL (12.0-16.0); Lymphocytes % 20.4 % (24.0-44.0); Mean Cell Volume 89.7 fL (78-100); Mean Corpuscular Hemoglobin 29.2 pg (26-32); Mean Corpuscular Hgb Concent. 32.6 g/dL (32-36); Mean Platelet Volume 9.1 fL (7.5-11.0); Monocyte (Absolute #) 0.97 x10^3/uL (0.0-1.3); Monocytes % 7.3 % (0.0-12.0); Neutrophil % 69.9 % (36.0-66.0); Platelet Count 804 x10^3/uL (150-450); Red Blood Count 3.97 x10^6/uL (4.1-5.4); Red Cell Distribution Width 31.8 % (11.5-14.0); White Blood Count 13.2 x10^3/uL (4.0-10.5)
[2021-12-26 12:56] LABS: ALBUMIN 4.2 g/dL (3.5-5.0); ALKALINE PHOSPHATASE 157 U/L (38-126); AMYLASE 63 U/L (30-110); ANION GAP 14.9 MEQ/L (5-15); BLOOD UREA NITROGEN 33 mg/dL (7-17); CHLORIDE 93 mmol/L (98-107); Calcium 10.2 mg/dL (8.4-10.2); Carbon Dioxide 30 mmol/L (22-30); Creatinine 1 1.43 mg/dL (0.52-1.04); EST GLOMERULAR FILTRATION RATE 37.8 ML/MIN; Glucose 262 mg/dL (74-106); LIPASE 26 U/L (23-300); NT PRO BNP 490 pg/mL (0-1800); Potassium 3.4 mmol/L (3.5-5.1); SGOT/AST 15 U/L (14-36); SGPT/ALT 11 U/L (0-35); SODIUM 135 mmol/L (137-145); Total Protein 7.4 g/dL (6.3-8.2)
[2021-12-26 12:57] LABS: CK-Creatinine Phosphokinase < 20 U/L (30-135)
[2021-12-26 13:15] LABS: Erythrocyte Sedimentation Rate 69 mm/hr (0-20)
[2021-12-26] MEDS ORDERED: TORAdol 30 mg Injection IM ONE (13:37)
[2021-12-26] MEDS ORDERED: TORAdol 30 mg Injection ONE (13:51)
[2021-12-26 14:49] VITALS: BP 121/75; PULSE 71
[2021-12-26 16:04] LABS: Slide Review 1 YES
--- NOTE | 2021-12-26 20:12 | XRAY ---
Indication: Left leg pain. Possible pulmonary embolus. Two-dimensional sonogram and color Doppler imaging of the major venous vessels of the left leg performed. Comparison: None No thrombus seen in the examined deep venous vessels of the left leg including greater saphenous vein. Veins demonstrate normal compressibility. Venous waveforms are normal with and without augmentation. Impression: Left leg negative for DVT. Comment: Preliminary report was given.
== END 2021-12-26 14:48 | disposition home or self-care (01) ==
LOC: ED 12:10
DX: M79.652 Pain in left thigh (principal); D69.1 Qualitative platelet defects; D3A.8 Other benign neuroendocrine tumors; I10 Essential (primary) hypertension; Z79.899 Other long term (current) drug therapy; Z28.310 Unvaccinated for COVID-19; Z79.891 Long term (current) use of opiate analgesic
CPT/HCPCS: 36415; 80053; 82150; 82550; 83690; 83735; 83880; 85025; 85379; 85652; 93971; 96372; 99283; 99291; J1885